=== PATIENT | female | born 1940 | race Caucasian/White ===

== ENCOUNTER 2020-02-04 13:23 | Inpatient (IN) | payer MEDICARE, BC ==
[2020-02-04] VITALS (7 sets, daily range): BP systolic 110–138; BP diastolic 35–80
[~2020-02-04] VITALS: Ht 152.4 cm; Wt 76.9 kg
[2020-02-04 14:28] LABS: Basophils # (auto) 0.1 10 ^3/uL (0-0.2); Monocytes # (auto) 0.5 10 ^3/uL (0-1.3)
[2020-02-04 14:30] LABS: Basophils % (auto) 0.9 % (0.0-2.0); Eosinophils # (auto) 0.1 10 ^3/uL (0-0.8); Eosinophils % (auto) 0.7 % (0.0-7.0); Hematocrit 13.7 % (36.0-46.0); Lymphocytes % (auto) 13.7 % (10.0-50.0); Mean Corpuscular Hgb Conc. 30.3 g/dL (32.0-36.0); Mean Corpuscular Volume 72.5 fL (80.0-100.0); Monocytes % (auto) 6.1 % (0.0-12.0); Neutrophils % (auto) 78.6 % (37.0-80.0); Nucleated Red Blood Cells % 0.2 %; Platelet Count (auto) 290 10^3/uL (140-450); White Blood Cell 7.6 10^3/uL (4.4-10.8)
[2020-02-04 14:33] LABS: Hemoglobin 4.2 g/dL (12.2-16.2); Red Cell Distribution Width 20.4 % (11.8-14.3)
[2020-02-04 14:46] LABS: Albumin 2.7 g/dL (3.4-5.0); Calcium 7.9 mg/dL (8.5-10.1); Potassium 4.2 mmol/L (3.5-5.1)
[2020-02-04 14:49] LABS: BUN/Creatinine Ratio 28.3; Bilirubin, Total 0.4 mg/dL (0.2-1.0)
[2020-02-04] MEDS ORDERED: SODIUM CHLORIDE 0.9% 1,000 ML IVB ONE (14:50)
[2020-02-04] MEDS ORDERED: PANTOPRAZOLE 40 MG/10 ML VIAL INJ IV ONE (15:00)
[2020-02-04 15:45] LABS: INR 1.08 (0.9-1.15); Partial Thromboplastin Time < 20.0 sec (23.64-32.05)
[2020-02-04 15:46] LABS: Urine WBC None Seen /hpf (0 - 5)
[2020-02-04 15:50] LABS: Magnesium 2.8 mg/dL (1.6-2.6)
[2020-02-04 16:23] LABS: Urine Bacteria NONE SEEN /hpf (None Seen); Urine Blood Negative /uL (Negative); Urine Specific Gravity 1.005 (1.001-1.035)
[2020-02-04] MEDS ORDERED: FUROSEMIDE 20 MG/2 ML VIAL IV ONE ×2 (17:00→19:00)
[2020-02-04] MEDS ORDERED: ALUM & MAG HYDROX-SIMETH LIQ(MAALOX) 30 ML PO PRN (17:00)
[2020-02-04] MEDS ORDERED: LACTATED RINGER'S 1,000 ML IV ONE (17:00)
[2020-02-04] MEDS ORDERED: LORazepam 0.5 MG TAB PO PRN (17:00)
[2020-02-04] MEDS ORDERED: NITROGLYCERIN 0.4 MG SL TAB SL PRN (17:00)
[2020-02-04] MEDS ORDERED: MORPHINE SULF INJ 2 MG/ML SYRINGE 1ML IV PRN ×2 (17:00)
[2020-02-04] MEDS ORDERED: ONDANSETRON HCL 4 MG/2 ML VIAL IV PRN (17:00)
[2020-02-04] MEDS ORDERED: ACETAMINOPHEN 325 MG TAB PO PRN (17:00)
[2020-02-04] MEDS ORDERED: HYDROcodone-ACET 5/325MG TAB PO PRN (17:00)
[2020-02-04] MEDS ORDERED: DOCUSATE SOD 100 MG CAP PO PRN (17:00)
[2020-02-04 17:12] LABS: Cholesterol 92 mg/dL (< 200)
[2020-02-04 17:15] LABS: HDL Cholesterol 34 mg/dL (40-59); LDL Cholesterol 56 mg/dL (< 100); Triglycerides 68 mg/dL (< 150)
[2020-02-04] MEDS: SODIUM CHLORIDE 0.9% 1,000 ML IV SCH (17:18)
[2020-02-04] MEDS: PANTOPRAZOLE 40 MG/10 ML VIAL INJ IV SCH (22:00)
[2020-02-05] VITALS (9 sets, daily range): BP systolic 94–160; BP diastolic 47–66
[2020-02-05] MEDS ORDERED: FUROSEMIDE 20 MG/2 ML VIAL IV SCH (06:00)
[2020-02-05 06:47] LABS: Basophils # (auto) 0.1 10 ^3/uL (0-0.2); Eosinophils # (auto) 0.2 10 ^3/uL (0-0.8)
[2020-02-05 06:51] LABS: Basophils % (auto) 1.1 % (0.0-2.0); Eosinophils % (auto) 2.5 % (0.0-7.0); Hematocrit 25.1 % (36.0-46.0); Lymphocytes # (auto) 1.2 10 ^3/uL (0.4-5.4); Lymphocytes % (auto) 15.4 % (10.0-50.0); Mean Corpuscular Hgb Conc. 32.1 g/dL (32.0-36.0); Mean Corpuscular Volume 81.1 fL (80.0-100.0); Monocytes # (auto) 0.6 10 ^3/uL (0-1.3); Monocytes % (auto) 7.5 % (0.0-12.0); Neutrophils # (auto) 5.9 10 ^3/uL (1.6-8.6); Neutrophils % (auto) 73.5 % (37.0-80.0); Nucleated Red Blood Cells % 0.1 %; Platelet Count (auto) 260 10^3/uL (140-450); Red Blood Cells 3.09 10^6/uL (4.0-5.20)
[2020-02-05] MEDS ORDERED: LEVOTHYROXINE SODIUM 100 MCG TAB PO SCH (07:00)
[2020-02-05 07:05] LABS: INR 1.08 (0.9-1.15); Partial Thromboplastin Time 20.7 sec (23.64-32.05)
[2020-02-05 07:14] LABS: Potassium 4.4 mmol/L (3.5-5.1)
[2020-02-05 07:19] LABS: Red Cell Distribution Width 22.6 % (11.8-14.3)
[2020-02-05 07:35] LABS: Albumin 2.7 g/dL (3.4-5.0); Bilirubin, Total 0.8 mg/dL (0.2-1.0); Calcium 7.9 mg/dL (8.5-10.1); Magnesium 2.7 mg/dL (1.6-2.6)
[2020-02-05] MEDS: SODIUM CHLORIDE 0.9% 1,000 ML IV SCH (09:27)
[2020-02-05] MEDS: PANTOPRAZOLE 40 MG/10 ML VIAL INJ IV SCH ×2 (09:37→22:40)
[2020-02-05] MEDS ORDERED: MORPHINE SULF INJ 2 MG/ML SYRINGE 1ML IV PRN (12:00)
[2020-02-05] MEDS ORDERED: LORazepam 0.5 MG TAB PO PRN (12:00)
[2020-02-05 12:13] LABS: Barbiturate Scree,Urine NEGATIVE (NEGATIVE); Benzodiazephine Screen, Urine NEGATIVE (NEGATIVE); Cocaine Screen, Urine NEGATIVE (NEGATIVE); Opiate Scree,Urine NEGATIVE (NEGATIVE)
[2020-02-05 12:15] LABS: Alcohol, Urine < 3.0 mg/dL (0-10)
[2020-02-05] MEDS ORDERED: CARVEDILOL 3.125 MG TAB PO ONE (12:15)
[2020-02-05] MEDS ORDERED: FUROSEMIDE 20 MG/2 ML VIAL IV ONE (12:15)
[2020-02-05 12:16] LABS: Amphetamine Screen, Urine NEGATIVE (NEGATIVE); Cannabinoid Screen, Urine NEGATIVE (NEGATIVE); Phencyclidine Screen, Urine NEGATIVE (NEGATIVE)
[2020-02-05 14:12] LABS: Hematocrit 25.3 % (36.0-46.0); Hemoglobin 8.1 g/dL (12.2-16.2)
[2020-02-05 19:59] LABS: Hematocrit 25.6 % (36.0-46.0); Hemoglobin 8.1 g/dL (12.2-16.2)
[2020-02-05] MEDS ORDERED: CARVEDILOL 3.125 MG TAB PO SCH (22:00)
[2020-02-05] MEDS: METOPROLOL TARTRATE 25 MG TAB PO SCH (22:40)
[2020-02-06 01:31] LABS: Hemoglobin 8.3 g/dL (12.2-16.2)
[2020-02-06] MEDS: SODIUM CHLORIDE 0.9% 1,000 ML IV SCH (03:22)
[2020-02-06 05:00] VITALS: BP 133/71
[2020-02-06 07:22] LABS: Basophils # (auto) 0.1 10 ^3/uL (0-0.2); Basophils % (auto) 1.2 % (0.0-2.0); Eosinophils # (auto) 0.4 10 ^3/uL (0-0.8); Lymphocytes # (auto) 1.2 10 ^3/uL (0.4-5.4); Mean Corpuscular Hemoglobin 25.5 pg (28.0-32.0); Monocytes # (auto) 0.7 10 ^3/uL (0-1.3); Nucleated Red Blood Cells % 0.3 %
[2020-02-06 07:26] LABS: Eosinophils % (auto) 4.9 % (0.0-7.0); Hematocrit 24.4 % (36.0-46.0); Hemoglobin 7.8 g/dL (12.2-16.2); Mean Corpuscular Volume 79.8 fL (80.0-100.0); Monocytes % (auto) 9.1 % (0.0-12.0); Neutrophils # (auto) 5.6 10 ^3/uL (1.6-8.6); Neutrophils % (auto) 69.8 % (37.0-80.0); Platelet Count (auto) 274 10^3/uL (140-450); Red Blood Cells 3.06 10^6/uL (4.0-5.20)
[2020-02-06 07:32] LABS: Red Cell Distribution Width 22.7 % (11.8-14.3)
[2020-02-06 07:47] LABS: Calcium 8.3 mg/dL (8.5-10.1); Magnesium 2.5 mg/dL (1.6-2.6); Potassium 3.9 mmol/L (3.5-5.1)
[2020-02-06 09:00] VITALS: BP 127/64
[2020-02-06] MEDS: METOPROLOL TARTRATE 25 MG TAB PO SCH ×2 (09:31→22:50)
[2020-02-06] MEDS: PANTOPRAZOLE 40 MG/10 ML VIAL INJ IV SCH ×2 (09:31→22:47)
[2020-02-06] MEDS ORDERED: FUROSEMIDE 20 MG/2 ML VIAL IV SCH (10:00)
[2020-02-06 12:00] LABS: Hemoglobin 8.1 g/dL (12.2-16.2)
[2020-02-06 12:03] LABS: Hematocrit 26.2 % (36.0-46.0)
[2020-02-06 12:40] VITALS: BP 104/60
[2020-02-06] MEDS ORDERED: SODIUM CHLORIDE 0.9% 1,000 ML IV SCH (13:30)
[2020-02-06] MEDS ORDERED: AML5T PO (13:50)
[2020-02-06] MEDS ORDERED: FURO1TAB31 PO (13:50)
[2020-02-06] MEDS ORDERED: ASPI-404 PO (13:50)
[2020-02-06] MEDS ORDERED: LISI10TA6 PO (13:50)
[2020-02-06] MEDS ORDERED: LEVO200T7 PO (13:52)
[2020-02-06] MEDS ORDERED: ATOR10TA PO (13:52)
[2020-02-06] MEDS ORDERED: POTA10TA51 PO (13:52)
[2020-02-06] MEDS: VERAPAMIL HCL 40 MG TAB PO SCH ×2 (14:00→22:48)
[2020-02-06 16:53] VITALS: BP 103/60
[2020-02-06 18:35] LABS: Hematocrit 27.7 % (36.0-46.0); Hemoglobin 8.6 g/dL (12.2-16.2)
[2020-02-06 20:00] VITALS: BP 119/40
[2020-02-06 22:00] VITALS: BP 119/40
[2020-02-06] MEDS: ATORVASTATIN 20 MG TAB PO SCH (22:48)
[2020-02-07 01:34] LABS: Hematocrit 24.1 % (36.0-46.0); Hemoglobin 7.7 g/dL (12.2-16.2)
[2020-02-07 05:00] VITALS: BP 111/63
[2020-02-07] MEDS: VERAPAMIL HCL 40 MG TAB PO SCH (06:10)
[2020-02-07 07:17] LABS: Hemoglobin 7.5 g/dL (12.2-16.2)
[2020-02-07 07:49] LABS: Calcium 7.9 mg/dL (8.5-10.1); Potassium 3.8 mmol/L (3.5-5.1)
[2020-02-07 07:51] LABS: BUN/Creatinine Ratio 19.6
[2020-02-07] MEDS: PANTOPRAZOLE 40 MG/10 ML VIAL INJ IV SCH (09:51)
[2020-02-07] MEDS: METOPROLOL TARTRATE 25 MG TAB PO SCH ×2 (09:55→21:40)
[2020-02-07] MEDS ORDERED: VERAPAMIL HCL 120 mg ER tab PO ONE (11:15)
[2020-02-07 13:00] VITALS: BP 96/54
[2020-02-07 16:44] VITALS: BP 128/58
[2020-02-07] MEDS: ATORVASTATIN 20 MG TAB PO SCH (21:40)
[2020-02-07] MEDS: PANTOPRAZOLE 40 MG TAB PO SCH (21:40)
[2020-02-07 22:00] VITALS: BP 109/67
[2020-02-08 05:24] VITALS: BP 107/60
[2020-02-08 07:33] LABS: Hematocrit 23.7 % (36.0-46.0); Hemoglobin 7.5 g/dL (12.2-16.2)
[2020-02-08 08:37] VITALS: BP 133/68
[2020-02-08] MEDS: PANTOPRAZOLE 40 MG TAB PO SCH (09:56)
[2020-02-08] MEDS: METOPROLOL TARTRATE 25 MG TAB PO SCH (09:56)
[2020-02-08] MEDS ORDERED: VERAPAMIL HCL 120 mg ER tab PO SCH (10:00)
[2020-02-08] MEDS ORDERED: PANT40TA2 PO (12:27)
[2020-02-08] MEDS ORDERED: VERA120T2 PO (12:27)
[2020-02-08] MEDS ORDERED: SUCR1TAB38 PO (12:27)
[2020-02-08] MEDS ORDERED: MET25T PO (12:27)
[2020-02-08 13:00] VITALS: BP 104/49
[2020-02-08 16:28] VITALS: BP 90/47
== END 2020-02-08 17:25 | disposition home health service (06) | DRG 377 ==
LOC: ER 13:23 → EDBD 13:23 → TELE 13:24 → TELE-WESTW 23:07
PROVIDERS: ADMIT Hospitalist; ATTEND Internal Medicine
PROC: 30233N1 Transfusion of Nonautologous Red Blood Cells into Peripheral Vein, Percutaneous Approach (ICD-10-PCS; principal; 2020-02-04)
DX: K57.31 Diverticulosis of large intestine without perforation or abscess with bleeding (principal); N17.0 Acute kidney failure with tubular necrosis; E43 Unspecified severe protein-calorie malnutrition; I21.A1 Myocardial infarction type 2; I50.33 Acute on chronic diastolic (congestive) heart failure; I13.0 Hypertensive heart and chronic kidney disease with heart failure and stage 1 through stage 4 chronic kidney disease, or unspecified chronic kidney disease; I42.1 Obstructive hypertrophic cardiomyopathy; K92.1 Melena; N18.3 Chronic kidney disease, stage 3 (moderate); G89.29 Other chronic pain; K80.20 Calculus of gallbladder without cholecystitis without obstruction; K42.9 Umbilical hernia without obstruction or gangrene; E03.9 Hypothyroidism, unspecified; E78.5 Hyperlipidemia, unspecified; D25.9 Leiomyoma of uterus, unspecified; D64.9 Anemia, unspecified; I65.29 Occlusion and stenosis of unspecified carotid artery; M19.90 Unspecified osteoarthritis, unspecified site; E66.9 Obesity, unspecified; K21.9 Gastro-esophageal reflux disease without esophagitis; M54.5 Low back pain; Z03.818 Encounter for observation for suspected exposure to other biological agents ruled out
CPT/HCPCS: 36415; 71045; 74176; 76856; 78278; 80048; 80053; 80061; 80307; 81001; 83036; 83735; 83880; 84100; 84443; 84484; 85014; 85018; 85025; 85610; 85730; 86850; 86900; 86901; 86920; 87040; 87086; 93005; 93306; 96361; 96374; A9560; C9113; G0378

== ENCOUNTER 2022-05-05 08:05 | Inpatient (IN) | payer MEDICARE, BC ==
[~2022-05-05] VITALS: Ht 153 cm; Wt 78.7 kg
[~2022-05-05 08:05] MED LIST: ATOR10TA PO; MET25T PO; PANT40TA2 PO; SUCR1TAB22 PO; VERA120T2 PO
[2022-05-05 08:58] LABS: Basophils # (auto) 0.1 10 ^3/uL (0-0.2); Basophils % (auto) 1.2 % (0.0-2.0); Eosinophils # (auto) 0.1 10 ^3/uL (0-0.8); Eosinophils % (auto) 1.9 % (0.0-7.0); Hematocrit 40.3 % (36.0-46.0); Hemoglobin 13.2 g/dL (12.2-16.2); Lymphocytes # (auto) 0.9 10 ^3/uL (0.4-5.4); Lymphocytes % (auto) 13.6 % (10.0-50.0); Mean Corpuscular Hemoglobin 30.3 pg (28.0-32.0); Mean Corpuscular Hgb Conc. 32.9 g/dL (32.0-36.0); Mean Corpuscular Volume 92.2 fL (80.0-100.0); Monocytes # (auto) 0.5 10 ^3/uL (0-1.3); Monocytes % (auto) 7.3 % (0.0-12.0); Neutrophils # (auto) 5.2 10 ^3/uL (1.6-8.6); Nucleated Red Blood Cells % 0.1 %; Red Blood Cells 4.37 10^6/uL (4.0-5.20); Red Cell Distribution Width 16.4 % (11.8-14.3); White Blood Cell 6.8 10^3/uL (4.4-10.8)
[2022-05-05 09:13] LABS: INR 1.11 (0.9-1.15)
[2022-05-05 09:18] LABS: Albumin 2.7 g/dL (3.4-5.0); BUN/Creatinine Ratio 19.5; Calcium 8.4 mg/dL (8.5-10.1); Potassium 3.6 mmol/L (3.5-5.1)
[2022-05-05 09:21] LABS: Bilirubin, Total 0.9 mg/dL (0.2-1.0)
[2022-05-05] MEDS ORDERED: cefTRIAXone 1GM/50ML D5W 50 ML IV ONE (13:30)
[2022-05-05] MEDS ORDERED: MORPHINE SULFATE INJ 2 MG/ml SYRG IV PRN (13:30)
[2022-05-05] MEDS ORDERED: NITROGLYCERIN 0.4 MG SL TAB SL PRN (13:30)
[2022-05-05] MEDS ORDERED: PANTOPRAZOLE 40 MG/10 ML VIAL INJ IV ONE (13:30)
[2022-05-05] MEDS ORDERED: AZITHROMYCIN 500MG/ 250ML 250 ML IV ONE (14:30)
[2022-05-05 14:39] LABS: Cholesterol 116 mg/dL (< 200)
[2022-05-05 14:41] LABS: HDL Cholesterol 62 mg/dL (40-59); LDL Cholesterol 54 mg/dL (< 100); Triglycerides 60 mg/dL (< 150)
[2022-05-05] MEDS ORDERED: AMIODARONE 450mg/250ml AE 250 ML IV SCH (19:15)
[2022-05-05 19:27] LABS: Urine Bacteria NONE SEEN /hpf (None Seen); Urine Blood Negative /uL (Negative); Urine Specific Gravity 1.032 (1.001-1.035); Urine WBC 3 /hpf (0 - 5)
[2022-05-05] MEDS: METOPROLOL TARTRATE 25 MG TAB PO SCH (23:11)
[2022-05-06 05:00] VITALS: BP 149/68
[2022-05-06] MEDS: METOPROLOL TARTRATE 25 MG TAB PO SCH ×3 (06:32→21:51)
[2022-05-06 06:58] LABS: Basophils # (auto) 0.1 10 ^3/uL (0-0.2); Basophils % (auto) 0.9 % (0.0-2.0); Eosinophils # (auto) 0.2 10 ^3/uL (0-0.8); Eosinophils % (auto) 2.8 % (0.0-7.0); Hematocrit 38.3 % (36.0-46.0); Hemoglobin 12.4 g/dL (12.2-16.2); Lymphocytes # (auto) 0.8 10 ^3/uL (0.4-5.4); Lymphocytes % (auto) 11.8 % (10.0-50.0); Mean Corpuscular Hemoglobin 30.3 pg (28.0-32.0); Mean Corpuscular Hgb Conc. 32.4 g/dL (32.0-36.0); Mean Corpuscular Volume 93.4 fL (80.0-100.0); Monocytes # (auto) 0.4 10 ^3/uL (0-1.3); Monocytes % (auto) 6.8 % (0.0-12.0); Neutrophils % (auto) 77.7 % (37.0-80.0); Nucleated Red Blood Cells % 0.1 %; Red Cell Distribution Width 16.5 % (11.8-14.3); White Blood Cell 6.4 10^3/uL (4.4-10.8)
[2022-05-06 07:04] LABS: Albumin 2.6 g/dL (3.4-5.0); Calcium 8.2 mg/dL (8.5-10.1); Potassium 4.1 mmol/L (3.5-5.1)
[2022-05-06 07:06] LABS: Bilirubin, Total 0.9 mg/dL (0.2-1.0); Total Protein 6.2 g/dL (6.4-8.2)
[2022-05-06] MEDS ORDERED: AMIODARONE 450mg/250ml AE 250 ML IV SCH (07:15)
[2022-05-06 08:17] VITALS: BP 149/63
[2022-05-06] MEDS ORDERED: AMLO-483 PO (08:57)
[2022-05-06] MEDS ORDERED: LEVO75TA6 PO (08:57)
[2022-05-06] MEDS ORDERED: SILD20TA12 PO (08:57)
[2022-05-06] MEDS ORDERED: ATOR40TA52 PO (08:57)
[2022-05-06] MEDS ORDERED: FUR20T PO (08:57)
[2022-05-06 09:00] VITALS: BP 136/48
[2022-05-06] MEDS ORDERED: cefTRIAXone 1GM/50ML D5W 50 ML IV SCH (09:00)
[2022-05-06] MEDS ORDERED: AZITHROMYCIN 500MG/ 250ML 250 ML IV SCH (10:00)
[2022-05-06] MEDS ORDERED: PANTOPRAZOLE 40 MG/10 ML VIAL INJ IV SCH (10:00)
[2022-05-06] MEDS ORDERED: amLODIPine BESYLATE 5 MG TAB PO ONE (11:00)
[2022-05-06] MEDS ORDERED: POTASSIUM CHL 20 Meq TABLET PO ONE (11:00)
[2022-05-06] MEDS ORDERED: FUROSEMIDE 40 MG/4 ML VIAL IV ONE (11:00)
[2022-05-06] MEDS ORDERED: LEVOTHYROXINE SODIUM 25 MCG TAB PO ONE (11:00)
[2022-05-06] MEDS: ENOXAPARIN SOD 40 MG/0.4 ML SYRINGE SC SCH (11:09)
[2022-05-06] MEDS: PANTOPRAZOLE 40 MG TAB PO SCH (11:09)
[2022-05-06] MEDS: DOXYCYCLINE 100 MG TAB/CAP PO SCH ×2 (11:09→21:47)
[2022-05-06 13:00] VITALS: BP 147/47
[2022-05-06] MEDS: AMIODARONE 450mg/250ml AE 250 ML IV SCH (14:06)
[2022-05-06 16:57] VITALS: BP 103/61
[2022-05-06] MEDS: ATORVASTATIN 20 MG TAB PO SCH (21:47)
[2022-05-06 22:00] VITALS: BP 133/53
[2022-05-07] MEDS: AMIODARONE 450mg/250ml AE 250 ML IV SCH ×3 (01:24→22:01)
[2022-05-07] MEDS ORDERED: AMIODARONE 450mg/250ml AE 250 ML IV SCH (03:30)
[2022-05-07 05:00] VITALS: BP 115/61
[2022-05-07] MEDS: METOPROLOL TARTRATE 25 MG TAB PO SCH (06:18)
[2022-05-07] MEDS: LEVOTHYROXINE SODIUM 25 MCG TAB PO SCH (06:19)
[2022-05-07 06:44] LABS: BUN/Creatinine Ratio 22.9; Calcium 8.3 mg/dL (8.5-10.1); Potassium 4.7 mmol/L (3.5-5.1)
[2022-05-07 09:00] VITALS: BP 148/63
[2022-05-07] MEDS: PANTOPRAZOLE 40 MG TAB PO SCH ×2 (09:26→09:27)
[2022-05-07] MEDS: ENOXAPARIN SOD 40 MG/0.4 ML SYRINGE SC SCH (09:26)
[2022-05-07] MEDS: POTASSIUM CHL 20 Meq TABLET PO SCH (09:26)
[2022-05-07] MEDS: amLODIPine BESYLATE 5 MG TAB PO SCH (09:27)
[2022-05-07] MEDS: DOXYCYCLINE 100 MG TAB/CAP PO SCH ×2 (09:27→21:53)
[2022-05-07] MEDS ORDERED: FUROSEMIDE 40 MG/4 ML VIAL IV SCH (10:00)
[2022-05-07 13:00] VITALS: BP 127/85
[2022-05-07 17:09] VITALS: BP 109/70
[2022-05-07] MEDS: ATORVASTATIN 20 MG TAB PO SCH (21:53)
[2022-05-07 22:00] VITALS: BP 118/66
[2022-05-08 05:00] VITALS: BP 128/56
[2022-05-08] MEDS: LEVOTHYROXINE SODIUM 25 MCG TAB PO SCH (06:17)
[2022-05-08 06:34] LABS: BUN/Creatinine Ratio 24.7; Calcium 8.9 mg/dL (8.5-10.1); Potassium 4.2 mmol/L (3.5-5.1)
[2022-05-08 08:18] VITALS: BP 110/85
[2022-05-08 09:00] VITALS: BP 110/85
[2022-05-08] MEDS ORDERED: AMIODARONE HCL 200 MG TAB PO SCH (10:00)
[2022-05-08] MEDS: amLODIPine BESYLATE 5 MG TAB PO SCH (10:00)
[2022-05-08] MEDS ORDERED: FUROSEMIDE 40 MG TAB PO SCH (10:00)
[2022-05-08] MEDS: ENOXAPARIN SOD 40 MG/0.4 ML SYRINGE SC SCH (10:24)
[2022-05-08] MEDS: PANTOPRAZOLE 40 MG TAB PO SCH (10:26)
[2022-05-08] MEDS: DOXYCYCLINE 100 MG TAB/CAP PO SCH (10:26)
[2022-05-08] MEDS: POTASSIUM CHL 20 Meq TABLET PO SCH (10:27)
[2022-05-08] MEDS ORDERED: AMIO200T33 PO (11:00)
[2022-05-08 11:47] VITALS: BP 140/60
[2022-05-08 13:15] VITALS: BP 140/60
== END 2022-05-08 13:00 | disposition home or self-care (01) | DRG 280 ==
LOC: ER 08:05 → EDBD 08:05 → TELE 13:25 → TELE-CENTR 05-06 03:21
PROVIDERS: ADMIT Registered Nurse; ATTEND Internal Medicine
DX: I13.0 Hypertensive heart and chronic kidney disease with heart failure and stage 1 through stage 4 chronic kidney disease, or unspecified chronic kidney disease (principal); I21.A1 Myocardial infarction type 2; I50.33 Acute on chronic diastolic (congestive) heart failure; J96.00 Acute respiratory failure, unspecified whether with hypoxia or hypercapnia; I42.1 Obstructive hypertrophic cardiomyopathy; Z66 Do not resuscitate; E78.5 Hyperlipidemia, unspecified; E03.9 Hypothyroidism, unspecified; E66.9 Obesity, unspecified; Z20.822 Contact with and (suspected) exposure to COVID-19; I25.10 Atherosclerotic heart disease of native coronary artery without angina pectoris; I48.91 Unspecified atrial fibrillation; J44.9 Chronic obstructive pulmonary disease, unspecified; N18.9 Chronic kidney disease, unspecified; I25.2 Old myocardial infarction; Z79.899 Other long term (current) drug therapy; Z68.33 Body mass index [BMI] 33.0-33.9, adult; Z71.6 Tobacco abuse counseling
CPT/HCPCS: 36415; 71045; 71275; 80048; 80053; 80061; 81001; 83036; 83880; 84443; 84484; 85025; 85379; 85610; 85730; 87040; 93005; 93306; 96365; 96367; 96375; 97110; 97116; 97530; C9113; G0378; J0696

== ENCOUNTER 2024-03-31 23:00 | Emergency (ER) | payer MEDICARE, BC ==
[~2024-03-31] VITALS: Ht 152.4 cm; Wt 55.0 kg
[~2024-03-31 23:00] MED LIST changes: +AMIO200T33 PO; +AMLO1TAB21 PO; +ATOR40TA52 PO; +FURO20TA4 PO; +LEVO75TA6 PO; +SILD20TA12 PO; -SUCR1TAB22 PO; +SUCR1TAB31 PO
[2024-04-01 00:24] VITALS: RESP 14; O2SAT 91
[2024-04-01 00:41] LABS: Basophils # (auto) 0 10 ^3/uL (0-0.2); Basophils % (auto) 0.4 % (0.0-2.0); Eosinophils # (auto) 0 10 ^3/uL (0-0.8); Eosinophils % (auto) 0.1 % (0.0-7.0); Hematocrit 40.9 % (36.0-46.0); Hemoglobin 14.2 g/dL (12.2-16.2); Lymphocytes # (auto) 0.8 10 ^3/uL (0.4-5.4); Lymphocytes % (auto) 7.6 % (10.0-50.0); Mean Corpuscular Hemoglobin 33.5 pg (28.0-32.0); Mean Corpuscular Hgb Conc. 34.6 g/dL (32.0-36.0); Mean Corpuscular Volume 96.7 fL (80.0-100.0); Monocytes # (auto) 0.5 10 ^3/uL (0-1.3); Monocytes % (auto) 5.2 % (0.0-12.0); Neutrophils # (auto) 8.7 10 ^3/uL (1.6-8.6); Neutrophils % (auto) 86.7 % (37.0-80.0); Platelet Count (auto) 209 10^3/uL (140-450); Red Blood Cells 4.23 10^6/uL (4.0-5.20); Red Cell Distribution Width 14.3 % (11.8-14.3)
[2024-04-01 00:51] LABS: Chloride 107 mmol/L (98-107); Potassium 3.8 mmol/L (3.5-5.1); Sodium 137 mmol/L (136-145)
[2024-04-01 00:52] LABS: Anion Gap 9 (5-15); Carbon Dioxide 21 mmol/L (20-30)
[2024-04-01 00:57] LABS: BUN/Creatinine Ratio 16.7 (10.0-20.0); Blood Urea Nitrogen 17 mg/dL (9-23); Glucose 141 mg/dL (74-106)
[2024-04-01] MEDS: MORPHINE SULFATE INJ 2 MG/ml SYRG IV ONE (01:00)
[2024-04-01] MEDS: ONDANSETRON HCL 4 MG/2 ML VIAL IV ONE (01:01)
[2024-04-01] MEDS: IOHEXOL 350 MG/ML 100ML IJ ONE (02:04)
[2024-04-01] MEDS: FUROSEMIDE 20 MG/2 ML VIAL IV ONE (05:13)
[2024-04-01] MEDS: ASPirin 325 MG TAB PO ONE (05:14)
[2024-04-01] MEDS: NITROGLYCERIN 2% OINT 1GM PKG TD ONE (05:14)
[2024-04-01] MEDS ORDERED: HEPARIN SODIUM (PORCINE) 5000 UNITS/ML 1ML VIAL IV ONE (05:45)
[2024-04-01] MEDS ORDERED: HEPARIN DRIP/D5W 100UNITS/ML 250 ML IV SCH (05:45)
[2024-04-01 07:27] VITALS: RESP 22; O2SAT 96
[2024-04-01 07:45] LABS: INR 1.13 (0.9-1.15); Partial Thromboplastin Time 26.7 SEC (24.5-34.5); Prothrombin Time 11.9 sec (9.3-11.8)
[2024-04-01 07:50] VITALS: BP 151/76; PULSE 84; RESP 22; TEMP 98.6; O2SAT 97
== END 2024-04-01 07:43 | disposition home or self-care (01) ==
LOC: EDBD 23:00 → ER 23:00
DX: I21.4 Non-ST elevation (NSTEMI) myocardial infarction (principal); I50.9 Heart failure, unspecified; I11.0 Hypertensive heart disease with heart failure; I77.1 Stricture of artery; I25.2 Old myocardial infarction; E78.5 Hyperlipidemia, unspecified; K21.9 Gastro-esophageal reflux disease without esophagitis; Z98.890 Other specified postprocedural states; Z79.899 Other long term (current) drug therapy
CPT/HCPCS: 36415; 71045; 72131; 73700; 80048; 83880; 84484; 85025; 85379; 85610; 85730; 93005; 96374; 96375; 99291; J1940; J2270; J2405; Q9967

== ENCOUNTER 2025-03-02 09:23 | Inpatient (IN) | payer MEDICARE, BC ==
[~2025-03-02] VITALS: Ht 152.4 cm; Wt 77.8 kg
--- NOTE | 2025-03-02 09:51 | ED.PDOC ---
History of Present Illness HPI Comments This is a 84-year-old female with past medical history of CAD, hypertension, hypothyroidism, CHF, AFib, DVT, hyperlipidemia presented to the ED with a chief complaint of per rectal bleeding since morning. The patient states that she started taking Eliquis 4 days ago and since morning she had 3 bowel movement that mostly contained fresh blood. She denies abdominal pain, chills, fever, chest pain, dizziness, blurred vision, shortness of breath, dysuria, hematuria. She was diagnosed with DVT of right leg in last March, but she was not continuing Eliquis. She also mentioned was on hospice from March, to Nov, 2024 for CHF. Time Seen by MD: 09:33 Allergies: Coded Allergies: No Known Drug Allergy (Verified Allergy, Unknown, 02/04/20) Home Meds Active Scripts Amiodarone Hcl (Amiodarone Hcl) 200 Mg Tab, 200 MG PO BID for 30 Days, #60 TAB 2 Refills Prov:CRISTINE PACHECO MD 05/08/22 Metoprolol Tartrate (Lopressor) 25 Mg Tb, 12.5 MG PO BID, #60 TAB Prov:ABDULLAHI LUX MD 02/08/20 Verapamil Hcl (Calan Sr) 120 Mg Tab, 120 MG PO DAILY, #30 TAB Prov:ABDULLAHI LUX MD 02/08/20 Sucralfate (CARAFATE) 1 Gm Tab, 1 GM PO ACHS, #120 TAB Prov:ABDULLAHI LUX MD 02/08/20 Pantoprazole Sodium Sesquihydr (Protonix) 40 Mg Tab, 40 MG PO BID, #60 TAB Prov:ABDULLAHI LUX MD 02/08/20 Reported Medications Furosemide (Furosemide) 20 Mg Tab, 1 TAB PO DAILY 05/06/22 Atorvastatin Calcium (ATORVASTATIN CALCIUM) 40 Mg Tab, 1 TAB PO HS 05/06/22 Sildenafil Citrate (SILDENAFIL CITRATE) 20 Mg Tab, 1 TAB PO BID 05/06/22 Amlodipine Besylate (Amlodipine Besylate) 2.5 Mg Tab, 1 TAB PO BID 05/06/22 Levothyroxine Sodium (Levothyroxine Sodium) 75 Mcg Tab, 1 TAB PO DAILY 05/06/22 Atorvastatin Calcium (Lipitor) 10 Mg Tab, 1 TAB PO DAILY, #30 TAB 5 Refills 02/06/20 Information Source: Patient Mode of Arrival: EMS Severity: Moderate Timing: Hours Duration: Since onset Prehospital treatment: None Past Medical History PAST MEDICAL HISTORY: AFIB, CAD, CHF, GERD, High Lipids, HTN, [place], Thyroid Past Medical History (Other): DVT Surgical History: Tonsillectomy SET UP PERSON History: Denies all SET UP PERSON Hx Family History Family History: Reviewed,noncontributory to illness Social History Smoker: Non-Smoker Alcohol: Denies ETOH Use Drugs: Denies Drug Use Lives In: Home Constitutional: denies: chills, diaphoresis, fatigue, fever, malaise, sweats, weakness, others EENTM: denies: blurred vision, double vision, ear bleeding, ear discharge, ear drainage, ear pain, ear ringing, eye pain, eye redness, hearing loss, mouth pain, mouth swelling, nasal discharge, nose bleeding, nose congestion, nose pain, photophobia, tearing, throat pain, throat swelling, voice changes, others Respiratory: denies: cough, hemoptysis, orthopnea, SOB at rest, shortness of breath, SOB with excertion, stridor, wheezing, others Cardiovascular: denies: chest pain, dizzy spells, diaphoresis, Dyspnea on exertion, edema, irregular heart beat, left arm pain, lightheadedness, palpitations, PND, syncope, others Gastrointestinal: reports: rectal bleeding; denies: abdomen distended, abdominal pain, blood streaked bowels, constipated, diarrhea, dysphagia, difficulty swallowing, hematemesis, melena, nausea, poor appetite, poor fluid intake, rectal pain, vomiting, others Genitourinary: denies: abnormal vagina bleeding, burning, dyspareunia, dysuria, flank pain, frequency, hematuria, incontinence, pain, , vagina discharge, urgency, others Neurological: denies: dizziness, fainting, headache, left sided numbness, left sided weakness, numbness, paresthesia, pre-existing deficit, right sided numbness, right sided weakness, seizure, speech problems, tingling, tremors, weakness, others Musculoskeletal: reports: others (Swelling and redness of the left leg) Integumetry: denies: bruises, change in color, change in hair/nails, dryness, laceration, lesions, lumps, rash, wounds, others Allergic/Immunocompromised: denies: Difficulty Healing, Frequent Infections, Hives, Itching, others Hematologic/Lymphatic: denies: anemia, blood clots, easy bleeding, easy bruising, swollen glands, others Endocrine: denies: excessive hunger, excessive sweating, excessive thirst, excessive urination, flushing, intolerance to cold, intolerance to heat, unexplained weight gain, unexplained weight loss, others Psychiatric: denies: anxiety, bipolar disorder, depression, hopeless, panic disorder, schizophrenia, sleepless, suicidal, others Physical Exam General Appearance: Mild Distress HEENT: Normal ENT Inspection, Pharynx Normal, TMs Normal Neck: Full Range of Motion, Non-Tender, Normal, Normal Inspection Respiratory: Chest Non-Tender, Lungs Clear, No Accessory Muscle Use, No Respiratory Distress, Normal Breath Sounds Cardiovascular: No Edema, No JVD, No Murmur, No Gallop, Normal Peripheral Pulses, Regular Rate/Rhythm Breast Exam: Deferred Gastrointestinal: No Organomegaly, Non Tender, No Pulsatile Mass, Normal Bowel Sounds, Soft Genitalia: Deferred Pelvic: Deferred Rectal: Deferred Extremities: Leg edema, Swelling, Tender Neurologic: NOT DONE Cerebellar Function: NOT DONE Reflexes: NOT DONE Skin: NOT DONE Peripheral Pulses: 2+ carotid (R), 2+ carotid (L), 2+ femoral (R), 2+ femoral (L), 2+ dorsalis pedis (R), 2+ dorsalis pedis (L), 2+ Radial (R), 2+ Radial (L), 2+ Brachial (R), 2+ Brachial (L) Lymphatic: NOT DONE Was a procedure done? Was a procedure done?: No Differential Dx Considerations may include: Lower GI bleeding, hemorrhoid, angiodysplasia, bleeding diathesis, DVT of the left leg, cellulitis of the left leg X-Ray, Labs, Meds, VS Vital Signs Date Time Temp Pulse Resp B/P (MAP) Pulse Ox O2 Delivery O2 Flow Rate FiO2 03/02/25 14:45 206/102 03/02/25 14:38 74 15 195/98 (130) 96 03/02/25 13:58 98.7 51 18 238/106 (150) 96 98.7 03/02/25 10:48 97.6 56 22 159/72 (101) 95 97.6 03/02/25 10:48 56 22 95 Room Air 03/02/25 09:30 98.5 51 16 184/62 91 98.5 Lab Test 03/02/25 10:38 03/02/25 10:07 Range/Units Urine Color Light-yellow Yellow Urine Clarity Clear Clear Urine pH 6.5 5.0-9.0 Urine Specific Panther 1.009 1.001-1.035 Urine Protein Negative Negative Urine Ketones Negative Negative Urine Blood 2+ H Negative /uL Urine Nitrite Negative Negative Urine Bilirubin Negative Negative Urine Urobilinogen Normal Negative mg/dL Urine Leukocyte Esterase Trace Negative /uL Urine RBC <1 0 - 4 /hpf Urine Microscopic WBC 4 0-5 /HPF Urine Squamous Epithelial Cells Few <5 /hpf Urine Bacteria Few H None Seen /hpf Urine Glucose Normal Normal mg/dL Stool Occult Blood Positive Negative Stool Occult Blood Sample #3 Negative White Blood Count 5.2 4.4-10.8 10^3/uL Red Blood Count 4.54 4.0-5.20 10^6/uL Hemoglobin 14.5 12.2-16.2 g/dL Hematocrit 43.4 36.0-46.0 % Mean Corpuscular Volume 95.7 80.0-100.0 fL Mean Corpuscular Hemoglobin 32.0 28.0-32.0 pg Mean Corpuscular Hemoglobin Concent 33.4 32.0-36.0 g/dL Red Cell Distribution Width 15.3 H 11.8-14.3 % Platelet Count 181 140-450 10^3/uL Mean Platelet Volume 8.6 6.9-10.8 fL Neutrophils (%) (Auto) 64.7 37.0-80.0 % Lymphocytes (%) (Auto) 21.1 10.0-50.0 % Monocytes (%) (Auto) 9.8 0.0-12.0 % Eosinophils (%) (Auto) 3.2 0.0-7.0 % Basophils (%) (Auto) 1.2 0.0-2.0 % Neutrophils # (Auto) 3.4 1.6-8.6 10 ^3/uL Lymphocytes # (Auto) 1.1 0.4-5.4 10 ^3/uL Monocytes # (Auto) 0.5 0-1.3 10 ^3/uL Eosinophils # (Auto) 0.2 0-0.8 10 ^3/uL Basophils # (Auto) 0.1 0-0.2 10 ^3/uL Nucleated Red Blood Cells 0.1 % Prothrombin Time 12.4 H 9.3-11.8 sec Prothrombin Time INR 1.19 H 0.9-1.15 Activated Partial Thromboplast Time 28.4 24.5-34.5 SEC Sodium Level 141 136-145 mmol/L Potassium Level 3.7 3.5-5.1 mmol/L Chloride Level 108 H 98-107 mmol/L Carbon Dioxide Level 25 20-31 mmol/L Anion Gap 8 5-15 Blood Urea Nitrogen 22 9-23 mg/dL Creatinine 0.88 0.550-1.02 mg/dL Glomerular Filtration Rate Calc 64 >90 mL/min BUN/Creatinine Ratio 25.0 H 10.0-20.0 Serum Glucose 78 74-106 mg/dL Calcium Level 9.1 8.7-10.4 mg/dL Total Bilirubin 0.7 0.2-1.0 mg/dL Aspartate Amino Transferase (AST) 20 13-40 U/L Alanine Aminotransferase (ALT) 17 7-40 U/L Alkaline Phosphatase 81 46-116 U/L B-Type Natriuretic Peptide 685.77 0-100 pg/mL Total Protein 7.1 5.7-8.2 g/dL Albumin 4.1 3.2-4.8 g/dL Current Medications Medications (Trade) Dose Ordered Sig/Steve Route Start Time Stop Time Status Last Admin Sodium Chloride 500 ml @ 500 mls/hr Q1H ONCE IV 03/02/25 10:00 03/02/25 10:59 DC 03/02/25 11:41 Pantoprazole Sodium (Protonix) 40 mg ONCE ONCE IV 03/02/25 10:00 03/02/25 10:07 DC 03/02/25 11:40 Clindamycin Phosphate 50 ml @ 50 mls/hr ONCE ONCE IV 03/02/25 10:15 03/02/25 11:14 DC 03/02/25 11:40 Hydralazine HCl (Apresoline Injection) 10 mg ONCE ONCE IV 03/02/25 14:45 03/02/25 14:48 DC 03/02/25 14:45 X-Ray, Labs, Meds, VS Comment Bilateral lower extremity venous duplex Clinical History: pain; To rule out DVT Comparison: CT ANGIO EXTREMITY BILAT on DOS: 8/31/24, PELVIC on DOS: 02/04/20, CT ABD PELVIS WO CONTRAST on DOS: 02/04/20 Technique: Duplex Doppler evaluation of the deep venous systems of both lower extremities from the common femoral veins to the popliteal veins including color Doppler and spectral/pulsed waveform analysis was performed. Findings: RIGHT SIDE: The common femoral vein demonstrates appropriate compressibility and waveform variability. There is compressibility/patency of the great saphenous vein at the proximal thigh. The femoral vein demonstrates appropriate compressibility and waveform variability. The deep femoral vein demonstrates appropriate compressibility and waveform variability. The popliteal vein demonstrates appropriate compressibility and waveform variability. There is normal compressibility at the tibioperoneal trunk. LEFT SIDE: The common femoral vein demonstrates appropriate compressibility and waveform variability. There is compressibility/patency of the great saphenous vein at the proximal thigh. The femoral vein demonstrates appropriate compressibility and waveform variability. The deep femoral vein demonstrates appropriate compressibility and waveform variability. The popliteal vein demonstrates appropriate compressibility and waveform variability. There is normal compressibility at the tibioperoneal trunk. Impression: No right or left femoropopliteal venous thrombosis. Images Reviewed?: Images reviewed and evaluated by me Time of 1ST Reevaluation: 11:30 Reevaluation 1ST: Unchanged Patient Education/Counseling: Diagnosis, Treatment Family Education/Counseling: No Family Present SEPSIS Sepsis Screen Physician Orders Bilat Lower Dvt (03/02/25 09:48) Saline Lock (03/02/25 11:28) Chest Portable (03/02/25 15:16) Pantoprazole 40mg/50ml Ns Ae (Protonix) (03/02/25 15:30) * Gi Dvh Administrative Hearing Officer (03/02/25 15:16) Vital Signs Date Time Temp Pulse Resp B/P (MAP) Pulse Ox O2 Delivery O2 Flow Rate FiO2 03/02/25 14:45 206/102 03/02/25 14:38 74 15 195/98 (130) 96 03/02/25 13:58 98.7 51 18 238/106 (150) 96 98.7 03/02/25 10:48 97.6 56 22 159/72 (101) 95 97.6 03/02/25 10:48 56 22 95 Room Air 03/02/25 09:30 98.5 51 16 184/62 91 98.5 Laboratory Tests Test 03/02/25 10:07 White Blood Count 5.2 10^3/uL (4.4-10.8) Medications Medications Dose Ordered Sig/Steve Route Start Time Stop Time Status Last Admin Dose Admin Clindamycin Phosphate 50 ml @ 50 mls/hr ONCE ONCE IV 03/02/25 10:15 03/02/25 11:14 DC 03/02/25 11:40 Hydralazine HCl 10 mg ONCE ONCE IV 03/02/25 14:45 03/02/25 14:48 DC 03/02/25 14:45 Pantoprazole Sodium 40 mg ONCE ONCE IV 03/02/25 10:00 03/02/25 10:07 DC 03/02/25 11:40 Sodium Chloride 500 ml @ 500 mls/hr Q1H ONCE IV 03/02/25 10:00 03/02/25 10:59 DC 03/02/25 11:41 Departure 1 Departure Time of Disposition: 14:30 Impression: Primary Impression: Lower GI bleeding Additional Impression: Hypertensive emergency Disposition: 30 STILL A PATIENT Admit to: Tele Condition: Guarded Critical Care Note Critical Care Time?: No Stability Stability form required: GANESH Kenny RESIDENT Mar 02, 2025 09:51
[2025-03-02 10:27] LABS: Hematocrit 43.4 % (36.0-46.0); Hemoglobin 14.5 g/dL (12.2-16.2); Mean Corpuscular Hemoglobin 32.0 pg (28.0-32.0); Mean Corpuscular Volume 95.7 fL (80.0-100.0); Nucleated Red Blood Cells % 0.1 %
[2025-03-02 10:40] LABS: INR 1.19 (0.9-1.15); Partial Thromboplastin Time 28.4 SEC (24.5-34.5); Prothrombin Time 12.4 sec (9.3-11.8)
[2025-03-02 10:43] LABS: Alanine Aminotransferase 17 U/L (7-40); Albumin 4.1 g/dL (3.2-4.8); Alkaline Phosphatase 81 U/L (46-116); Anion Gap 8 (5-15); BUN/Creatinine Ratio 25.0 (10.0-20.0); Bilirubin, Total 0.7 mg/dL (0.2-1.0); Blood Urea Nitrogen 22 mg/dL (9-23); Calcium 9.1 mg/dL (8.7-10.4); Carbon Dioxide 25 mmol/L (20-31); Chloride 108 mmol/L (98-107); Glucose 78 mg/dL (74-106); Potassium 3.7 mmol/L (3.5-5.1); Sodium 141 mmol/L (136-145); Total Protein 7.1 g/dL (5.7-8.2)
[2025-03-02] MEDS: CLINDAMYCIN 300MG IV 50 ML IV ONE (11:40)
[2025-03-02] MEDS: PANTOPRAZOLE 40 MG/10 ML VIAL INJ IV ONE (11:40)
[2025-03-02] MEDS: SODIUM CHLORIDE 0.9% 500 ML IV ONE (11:41)
[2025-03-02 11:59] LABS: Urine Protein, UAD Negative (Negative)
--- NOTE | 2025-03-02 14:19 | DVH ---
Bilateral lower extremity venous duplex Clinical History: pain; To rule out DVT Comparison: CT ANGIO EXTREMITY BILAT on DOS: 04/01/24, PELVIC on DOS: 02/04/20, CT ABD PELVIS WO CONTRAS T on DOS: 02/04/20 Technique: Duplex Doppler evaluation of the deep venous systems of both lower extremities from the common femora l veins to the popliteal veins including color Doppler and spectral/pulsed waveform analysis was perf ormed. Findings: RIGHT SIDE: The common femoral vein demonstrates appropriate compressibility and waveform variability. There is compressibility/patency of the great saphenous vein at the proximal thigh. The femoral vein demonstrates appropriate compressibility and waveform variability. The deep femoral vein demonstrates appropriate compressibility and waveform variability. The popliteal vein demonstrates appropriate compressibility and waveform variability. There is normal compressibility at the tibioperoneal trunk. LEFT SIDE: The common femoral vein demonstrates appropriate compressibility and waveform variability. There is compressibility/patency of the great saphenous vein at the proximal thigh. The femoral vein demonstrates appropriate compressibility and waveform variability. The deep femoral vein demonstrates appropriate compressibility and waveform variability. The popliteal vein demonstrates appropriate compressibility and waveform variability. There is normal compressibility at the tibioperoneal trunk. Impression: No right or left femoropopliteal venous thrombosis.
[2025-03-02] MEDS: hydrALAZINE HCL 20 MG/ML VL IV ONE ×2 (14:45→16:45)
[2025-03-02 15:30] VITALS: PULSE 62; RESP 15; O2SAT 94
--- NOTE | 2025-03-02 15:50 | DVH ---
CHEST RADIOGRAPH Indication: chf Technique: Single frontal view of the chest was obtained COMPARISON: XY CHEST XRAY 1 VIEW on DOS: 04/01/24, CT ANGIO CHEST CONTRAST on DOS: 05/05/22, CXRP on DO S: 05/05/22, CHEST PORTABLE on DOS: 05/05/22, CHEST PORTABLE on DOS: 02/04/20 FINDINGS: Lines and Tubes: None Lungs: Increased interstitial prominence Pleura: No effusion. No pneumothorax. Cardiomediastinal contours: Cardiomegaly Bones: Unremarkable IMPRESSION: Increased interstital prominence. This may represent pulmonary vascular congestion or viral pneumonia . Clinical correlation advised.
[2025-03-02] MEDS: PANTOPRAZOLE 40mg/50ML NS AE 50 ML IV ONE (16:40)
[2025-03-02] MEDS ORDERED: HYDROcodone-ACET 5/325MG TAB PO PRN (19:00)
[2025-03-02] MEDS ORDERED: ACETAMINOPHEN 325 MG TAB PO PRN (19:00)
[2025-03-02] MEDS ORDERED: DOCUSATE SOD 100 MG CAP PO PRN (19:00)
[2025-03-02] MEDS ORDERED: ONDANSETRON HCL 4 MG/2 ML VIAL IV PRN (19:00)
--- NOTE | 2025-03-02 19:04 | DVHHP2 ---
Admitting Diagnosis: Lower GI bleed History of Present Illness This is a 84-year-old female with past medical history of CAD, hypertension, hypothyroidism, CHF, AFib, DVT, hyperlipidemia presented to the ED with a chief complaint of per rectal bleeding since morning. The patient states that she started taking Eliquis 4 days ago and since morning she had 3 bowel movement that mostly contained fresh blood. She denies abdominal pain, chills, fever, chest pain, dizziness, blurred vision, shortness of breath, dysuria, hematuria. She was diagnosed with DVT of right leg in last March, but she was not continuing Eliquis. She also mentioned was on hospice from March, to Nov, 2024 for CHF. Last dose of Eliquis generally 31 evening. 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 Family History Family History: Reviewed,noncontributory to illness Social History Smoker: Non-Smoker Alcohol: Denies ETOH Use Drugs: Denies Drug Use Lives In: Home Patient Family History: Cardiovascular disease G8 MOTHER Diabetes mellitus G8 MOTHER FHx: epilepsy G8 MOTHER Hypertension G8 MOTHER Allergies: Coded Allergies: No Known Drug Allergy (Verified Allergy, Unknown, 02/04/20) Home Meds Active Scripts Amiodarone Hcl (Amiodarone Hcl) 200 Mg Tab, 200 MG PO BID for 30 Days, #60 TAB 2 Refills Prov:CRISTINE PACHECO MD 05/08/22 Metoprolol Tartrate (Lopressor) 25 Mg Tb, 12.5 MG PO BID, #60 TAB Prov:ABDULLAHI LUX MD 02/08/20 Verapamil Hcl (Calan Sr) 120 Mg Tab, 120 MG PO DAILY, #30 TAB Prov:ABDULLAHI LUX MD 02/08/20 Sucralfate (CARAFATE) 1 Gm Tab, 1 GM PO ACHS, #120 TAB Prov:ABDULLAHI LUX MD 02/08/20 Pantoprazole Sodium Sesquihydr (Protonix) 40 Mg Tab, 40 MG PO BID, #60 TAB Prov:ABDULLAHI LUX MD 02/08/20 Reported Medications Furosemide (Furosemide) 20 Mg Tab, 1 TAB PO DAILY 05/06/22 Atorvastatin Calcium (ATORVASTATIN CALCIUM) 40 Mg Tab, 1 TAB PO HS 05/06/22 Sildenafil Citrate (SILDENAFIL CITRATE) 20 Mg Tab, 1 TAB PO BID 05/06/22 Amlodipine Besylate (Amlodipine Besylate) 2.5 Mg Tab, 1 TAB PO BID 05/06/22 Levothyroxine Sodium (Levothyroxine Sodium) 75 Mcg Tab, 1 TAB PO DAILY 05/06/22 Atorvastatin Calcium (Lipitor) 10 Mg Tab, 1 TAB PO DAILY, #30 TAB 5 Refills 02/06/20 Current Medications Current Medications Medications (Trade) Dose Ordered Sig/Steve Route PRN Reason Start Time Stop Time Status Last Admin Amiodarone HCl (Cordarone Tablet) 200 mg BID PO 03/02/25 22:00 UNV Furosemide (Lasix Tablet) 20 mg DAILY PO 03/03/25 10:00 UNV Metoprolol Tartrate (Lopressor Tablet) 12.5 mg BID PO 03/02/25 22:00 UNV Pantoprazole Sodium (Protonix Tablet) 40 mg BID PO 03/02/25 22:00 UNV Sildenafil Citrate (Revatio) 20 mg BID PO 03/02/25 22:00 UNV Sucralfate (Carafate Tab) 1 gm ACHS PO 03/02/25 22:00 UNV Verapamil HCl (Cal[place] Sr) 120 mg DAILY PO 03/03/25 10:00 UNV Patient Own Medication 1 tab BID PO 03/02/25 22:00 UNV Patient Own Medication 1 tab HS PO 03/02/25 22:00 UNV Patient Own Medication 1 tab DAILY PO 03/03/25 10:00 UNV Patient Own Medication 1 tab DAILY PO 03/03/25 10:00 UNV Sodium Chloride (Saline Lock Ns) 10 ml Q8HR IV 03/02/25 22:00 UNV Docusate Sodium (Colace Capsule) 100 mg BIDPRN PRN PO FOR CONSTIPATION 03/02/25 19:00 UNV Acetaminophen (Tylenol Tablet) 650 mg Q6HP PRN PO PAIN SCALE 1-3 OR TEMP>100.4 03/02/25 19:00 UNV Acetaminophen/ Hydrocodone Bitart ([place] 5/325MG Tab) 1 tab Q4HP PRN PO MODERATE PAIN (4-6 PAIN SCALE) 03/02/25 19:00 UNV Ondansetron HCl (Zofran) 4 mg Q4HP PRN IV NAUSEA / VOMITING 03/02/25 19:00 UNV Pantoprazole Sodium (Protonix) 40 mg DAILY IV 03/02/25 19:00 UNV Vital Signs Vital Signs Date Time Temp Pulse Resp B/P (MAP) Pulse Ox O2 Delivery O2 Flow Rate FiO2 03/02/25 17:45 96 18 121/88 (99) 98 03/02/25 15:30 Nasal Cannula* 2 28 03/02/25 13:58 98.7 98.7 Physical Exam Generally-84 years old woman, well nourished well developed. No apparent distress. Resting on bed HEENT-atraumatic, normocephalic Heart-regular rate and rhythm clear to auscultate Abdomen soft nontender nondistended Musculoskeletal-no cyanosis positive pedal edema Neuro-AO x3, no focal deficits SEPSIS Sepsis Screen Date sepsis recognized/suspect: Mar 02, 2025 Time Sepsis recognized/suspect: 1518 Recent Procedure: No On Antibiotic Therapy: No Respiratory Rate >20: No Heart Rate >90: No Temp<36 C (96.8 F) or >38.3 C: No SBP <90 or MAP <65 mmHG: No New Acute Mental Status Change: No Is the patient on CPAP, BIPAP,: No Physician Orders Bilat Lower Dvt (03/02/25 09:48) Saline Lock (03/02/25 11:28) Chest Portable (03/02/25 15:16) Pantoprazole 40mg/50ml Ns Ae (Protonix) (03/02/25 15:30) * [facility] Community Assistant Manager (03/02/25 15:16) Complete Blood Count (03/02/25 18:56) Complete Blood Count (03/03/25 02:56) Complete Blood Count (03/03/25 10:56) Complete Blood Count (03/03/25 18:56) Complete Blood Count (03/04/25 02:56) Amiodarone Tablet (Cordarone Tablet) (03/02/25 22:00) Furosemide Tablet (Lasix Tablet) (03/03/25 10:00) Metoprolol Tartrate Tablet (Lopressor Ta (03/02/25 22:00) Pantoprazole Tablet (Protonix Tablet) (03/02/25 22:00) Sildenafil Citrate (Revatio) (03/02/25 22:00) Sucralfate Tab (Carafate Tab) (03/02/25 22:00) Verapamil Er (Calan Sr) (03/03/25 10:00) (Nf) Amlodipine Besylate (03/02/25 22:00) (Nf) Atorvastatin Calcium (03/02/25 22:00) (Nf) Atorvastatin Calcium (Lipitor) (03/03/25 10:00) (Nf) Levothyroxine Sodium (03/03/25 10:00) Admit (03/02/25 18:56) Code Status (03/02/25 18:56) Vital Signs .PER UNIT PROTOCOL (03/02/25 18:56) Review Orders With Adm. (03/02/25 18:56) Encourage Activity As Tolerate (03/02/25 18:56) Npo (Nothing By Mouth) Diet (03/03/25 Breakfast) Sodium Chloride Lock (Saline Lock Ns) (03/02/25 22:00) Docusate Sodium Capsule (Colace Capsule) (03/02/25 19:00) Acetaminophen Tablet (Tylenol Tablet) (03/02/25 19:00) Notify Md Of Changes From Base (03/02/25 18:56) Advance Directive (03/02/25 18:56) Patient Condition (03/02/25 18:56) Allergies (03/02/25 18:56) Hydrocodone-Acet 5/325mg Tab ([place] 5/32 (03/02/25 19:00) Ondansetron Hcl (Zofran) (03/02/25 19:00) Sequential Compression Device (03/02/25 18:56) Pantoprazole (Protonix) (03/02/25 19:00) Comprehensive Metabolic Panel (03/03/25 05:00) Comprehensive Metabolic Panel (03/04/25 05:00) Comprehensive Metabolic Panel (03/05/25 05:00) Comprehensive Metabolic Panel (03/06/25 05:00) Comprehensive Metabolic Panel (03/07/25 05:00) Vital Signs Date Time Temp Pulse Resp B/P (MAP) Pulse Ox O2 Delivery O2 Flow Rate FiO2 03/02/25 17:45 96 18 121/88 (99) 98 03/02/25 16:45 185/80 03/02/25 16:40 54 20 185/80 (115) 97 03/02/25 15:30 62 15 94 Nasal Cannula* 2 28 03/02/25 14:45 206/102 03/02/25 14:38 74 15 195/98 (130) 96 03/02/25 13:58 98.7 51 18 238/106 (150) 96 98.7 03/02/25 10:48 97.6 56 22 159/72 (101) 95 97.6 03/02/25 10:48 56 22 95 Room Air 03/02/25 09:30 98.5 51 16 184/62 91 98.5 Laboratory Tests Test 03/02/25 10:07 White Blood Count 5.2 10^3/uL (4.4-10.8) Medications Medications Dose Ordered Sig/Steve Route Start Time Stop Time Status Last Admin Dose Admin Clindamycin Phosphate 50 ml @ 50 mls/hr ONCE ONCE IV 03/02/25 10:15 03/02/25 11:14 DC 03/02/25 11:40 Hydralazine HCl 10 mg ONCE ONCE IV 03/02/25 14:45 03/02/25 14:48 DC 03/02/25 14:45 Hydralazine HCl 10 mg ONCE ONCE IV 03/02/25 16:45 03/02/25 16:48 DC 03/02/25 16:45 Pantoprazole Sodium 40 mg ONCE ONCE IV 03/02/25 10:00 03/02/25 10:07 DC 03/02/25 11:40 Pantoprazole Sodium 50 ml @ 10 mls/hr Q5H ONCE IV 03/02/25 15:30 03/02/25 20:29 03/02/25 16:40 Sodium Chloride 500 ml @ 500 mls/hr Q1H ONCE IV 03/02/25 10:00 03/02/25 10:59 DC 03/02/25 11:41 Results Labs Test 03/02/25 10:38 03/02/25 10:07 Range/Units Urine Color Light-yellow Yellow Urine Clarity Clear Clear Urine pH 6.5 5.0-9.0 Urine Specific [place] 1.009 1.001-1.035 Urine Protein Negative Negative Urine Ketones Negative Negative Urine Blood 2+ H Negative /uL Urine Nitrite Negative Negative Urine Bilirubin Negative Negative Urine Urobilinogen Normal Negative mg/dL Urine Leukocyte Esterase Trace Negative /uL Urine RBC <1 0 - 4 /hpf Urine Microscopic WBC 4 0-5 /HPF Urine Squamous Epithelial Cells Few <5 /hpf Urine Bacteria Few H None Seen /hpf Urine Glucose Normal Normal mg/dL Stool Occult Blood Positive Negative Stool Occult Blood Sample #3 Negative White Blood Count 5.2 4.4-10.8 10^3/uL Red Blood Count 4.54 4.0-5.20 10^6/uL Hemoglobin 14.5 12.2-16.2 g/dL Hematocrit 43.4 36.0-46.0 % Mean Corpuscular Volume 95.7 80.0-100.0 fL Mean Corpuscular Hemoglobin 32.0 28.0-32.0 pg Mean Corpuscular Hemoglobin Concent 33.4 32.0-36.0 g/dL Red Cell Distribution Width 15.3 H 11.8-14.3 % Platelet Count 181 140-450 10^3/uL Mean Platelet Volume 8.6 6.9-10.8 fL Neutrophils (%) (Auto) 64.7 37.0-80.0 % Lymphocytes (%) (Auto) 21.1 10.0-50.0 % Monocytes (%) (Auto) 9.8 0.0-12.0 % Eosinophils (%) (Auto) 3.2 0.0-7.0 % Basophils (%) (Auto) 1.2 0.0-2.0 % Neutrophils # (Auto) 3.4 1.6-8.6 10 ^3/uL Lymphocytes # (Auto) 1.1 0.4-5.4 10 ^3/uL Monocytes # (Auto) 0.5 0-1.3 10 ^3/uL Eosinophils # (Auto) 0.2 0-0.8 10 ^3/uL Basophils # (Auto) 0.1 0-0.2 10 ^3/uL Nucleated Red Blood Cells 0.1 % Prothrombin Time 12.4 H 9.3-11.8 sec Prothrombin Time INR 1.19 H 0.9-1.15 Activated Partial Thromboplast Time 28.4 24.5-34.5 SEC Sodium Level 141 136-145 mmol/L Potassium Level 3.7 3.5-5.1 mmol/L Chloride Level 108 H 98-107 mmol/L Carbon Dioxide Level 25 20-31 mmol/L Anion Gap 8 5-15 Blood Urea Nitrogen 22 9-23 mg/dL Creatinine 0.88 0.550-1.02 mg/dL Glomerular Filtration Rate Calc 64 >90 mL/min BUN/Creatinine Ratio 25.0 H 10.0-20.0 Serum Glucose 78 74-106 mg/dL Calcium Level 9.1 8.7-10.4 mg/dL Total Bilirubin 0.7 0.2-1.0 mg/dL Aspartate Amino Transferase (AST) 20 13-40 U/L Alanine Aminotransferase (ALT) 17 7-40 U/L Alkaline Phosphatase 81 46-116 U/L B-Type Natriuretic Peptide 685.77 0-100 pg/mL Total Protein 7.1 5.7-8.2 g/dL Albumin 4.1 3.2-4.8 g/dL Primary Diagnosis Lower GI bleed AFib on Eliquis DVT on Eliquis Plan Patient has started taking Eliquis four days ago for AFib and DVT. Status post evening dose March 01. Patient did not take Eliquis this morning. Hold Eliquis bnp elevated, does not look decompensated. will resume po lasix. if became decompensated or hypoxic, start iv lasix Check CBC q.8 hours Hemoglobin goal greater than seven GI consult resume home meds. Including antihypertensive medication. Patient is having hypertensive urgency. If patient is having mariam GI bleed or began to be hypotensive, hold blood pressure medications SCD for DVT prophylaxis PPI for GI prophylaxis Full Code Plan discussed with: Patient Problems List: (1) Lower GI bleeding Status: Acute (2) CHF (congestive heart failure) Status: Acute Date of Service: Mar 02, 2025 Billing Provider: TITA GARDNER MD Common Visit Codes: 57895-PGETIST INP/OBS CARE (HIGH) TITA GARDNER MD Mar 02, 2025 19:04
[2025-03-02 19:30] VITALS: PULSE 74; RESP 21; O2SAT 97
[2025-03-02 19:33] LABS: Hematocrit 44.4 % (36.0-46.0); Hemoglobin 15.0 g/dL (12.2-16.2); Mean Corpuscular Hemoglobin 32.5 pg (28.0-32.0); Mean Corpuscular Volume 96.1 fL (80.0-100.0); Nucleated Red Blood Cells % 0.3 %
[2025-03-02] MEDS: PANTOPRAZOLE 40 MG/10 ML VIAL INJ IV SCH (21:00)
[2025-03-02] MEDS: AMIODARONE HCL 200 MG TAB PO SCH (21:34)
[2025-03-02] MEDS: SUCRALFATE 1 GM TAB PO SCH (21:34)
[2025-03-02] MEDS: METOPROLOL TARTRATE 25 MG TAB PO SCH (21:36)
[2025-03-02] MEDS ORDERED: PATIENTS OWN MEDICATION (Atorvastatin Calcium 1 TAB) PO SCH (22:00)
[2025-03-02] MEDS ORDERED: PANTOPRAZOLE 40 MG TAB PO SCH (22:00)
[2025-03-02] MEDS: SILDENAFIL CITRATE 20 MG TAB PO SCH (22:00)
[2025-03-02] MEDS: SODIUM CHLOR 0.9% PF (SALINE LOCK) 10ML VIAL/SYR IV SCH (22:09)
--- NOTE | 2025-03-02 22:58 | ECG ---
[facility] Test Date: 2025-03-02 Test Time: 09:47:20 Pat Name: EFREN ESTRADA Department: ED Room: 0290T Gender: F Intelligence Chief: ALEXANDRU : 1940 Requested By: GANESH MAO Order Number: [id number] Reading MD: Arnav Suárez Measurements Intervals [place] Rate: 53 P: 35 VA: 219 QRS: 34 QRSD: 106 T: 75 QT: 478 QTc: 449 Interpretive Statements Sinus rhythm Borderline prolonged VA interval Left atrial enlargement Left ventricular hypertrophy Borderline ST elevation, lateral leads Electronically Signed On 03-05-2025 22:01:42 PDT by Arnav Suárez Please click the below link to view image of tracing.
[2025-03-02 23:53] VITALS: BP 101/78; PULSE 97; RESP 18; TEMP 98.6; O2SAT 97
[2025-03-02 23:58] VITALS: BP 101/78; PULSE 97; RESP 18; TEMP 98.6; O2SAT 97
[2025-03-03] VITALS (8 sets, daily range): BP systolic 120–174; BP diastolic 58–79; PULSE 50–92; RESP 17–20; TEMP 97.5–98; O2SAT 91–96
[2025-03-03 02:55] LABS: Hematocrit 43.7 % (36.0-46.0); Hemoglobin 14.7 g/dL (12.2-16.2); Mean Corpuscular Hemoglobin 32.2 pg (28.0-32.0); Mean Corpuscular Volume 95.4 fL (80.0-100.0); Nucleated Red Blood Cells % 0.2 %
[2025-03-03 03:06] LABS: Alanine Aminotransferase 14 U/L (7-40); Albumin 3.7 g/dL (3.2-4.8); Alkaline Phosphatase 77 U/L (46-116); Anion Gap 8 (5-15); BUN/Creatinine Ratio 22.0 (10.0-20.0); Blood Urea Nitrogen 18 mg/dL (9-23); Calcium 9.0 mg/dL (8.7-10.4); Carbon Dioxide 23 mmol/L (20-31); Glucose 96 mg/dL (74-106); Potassium 4.0 mmol/L (3.5-5.1); Sodium 141 mmol/L (136-145); Total Protein 6.5 g/dL (5.7-8.2)
[2025-03-03 03:07] LABS: Bilirubin, Total 0.9 mg/dL (0.2-1.0)
[2025-03-03 03:40] LABS: Chloride 110 mmol/L (98-107)
[2025-03-03] MEDS: LEVOTHYROXINE SODIUM 50 MCG TAB PO SCH (06:05)
[2025-03-03] MEDS ORDERED: GOLYTELY 4L KIT PO ONE (07:45)
--- NOTE | 2025-03-03 07:47 | DVHINCON2 ---
Date of service: Mar 03, 2025 Referring Physician Vasu Reason for Consultation Bloody diarrhea History of Present Illness The patient is a 84-year-old female with past medical history significant for coronary artery disease history of [place], atrial fibrillation, CHF, elevated BNP, history of DVT, recently on Eliquis, noted to have several episodes of hematochezia with diarrhea. Patient has no prior history of similar findings. She denies any history of a colonoscopy. Patient was on hospice for CHF up until November 2024. She denies any significant abdominal pain other than pain in the rectal area with wiping due to the diarrhea. She denies any fevers or chills, chest pain or shortness of breath, nausea or vomiting. GI consultation was obtained for evaluation. Patient's hemoglobin is noted to be normal. Past Medical History As above Hypothyroidism AFib History of DVT History of CHF History of CAD History of [place] Past Surgical History Tonsillectomy Family History: Cardiovascular disease G8 MOTHER Diabetes mellitus G8 MOTHER FHx: epilepsy G8 MOTHER Hypertension G8 MOTHER Family History Denies gastrointestinal diseases or malignancy Social History No tobacco, alcohol or recreational drug abuse Allergies: Coded Allergies: No Known Drug Allergy (Verified Allergy, Unknown, 02/04/20) Home Meds Active Scripts Amiodarone Hcl (Amiodarone Hcl) 200 Mg Tab, 200 MG PO BID for 30 Days, #60 TAB 2 Refills Prov:CRISTINE PACHECO MD 05/08/22 Metoprolol Tartrate (Lopressor) 25 Mg Tb, 12.5 MG PO BID, #60 TAB Prov:ABDULLAHI LUX MD 02/08/20 Verapamil Hcl (Calan Sr) 120 Mg Tab, 120 MG PO DAILY, #30 TAB Prov:ABDULLAHI LUX MD 02/08/20 Sucralfate (CARAFATE) 1 Gm Tab, 1 GM PO ACHS, #120 TAB Prov:ABDULLAHI LUX MD 02/08/20 Pantoprazole Sodium Sesquihydr (Protonix) 40 Mg Tab, 40 MG PO BID, #60 TAB Prov:ABDULLAHI LUX MD 02/08/20 Reported Medications Furosemide (Furosemide) 20 Mg Tab, 1 TAB PO DAILY 05/06/22 Atorvastatin Calcium (ATORVASTATIN CALCIUM) 40 Mg Tab, 1 TAB PO HS 05/06/22 Sildenafil Citrate (SILDENAFIL CITRATE) 20 Mg Tab, 1 TAB PO BID 05/06/22 Amlodipine Besylate (Amlodipine Besylate) 2.5 Mg Tab, 1 TAB PO BID 05/06/22 Levothyroxine Sodium (Levothyroxine Sodium) 75 Mcg Tab, 1 TAB PO DAILY 05/06/22 Atorvastatin Calcium (Lipitor) 10 Mg Tab, 1 TAB PO DAILY, #30 TAB 5 Refills 02/06/20 Current Medications Current Medications Medications (Trade) Dose Ordered Sig/Steve Route PRN Reason Start Time Stop Time Status Last Admin Amiodarone HCl (Cordarone Tablet) 200 mg BID PO 03/02/25 22:00 03/02/25 21:34 Furosemide (Lasix Tablet) 20 mg DAILY PO 03/03/25 10:00 Metoprolol Tartrate (Lopressor Tablet) 12.5 mg BID PO 03/02/25 22:00 03/02/25 21:36 Pantoprazole Sodium (Protonix Tablet) 40 mg BID PO 03/02/25 22:00 03/02/25 19:29 DC Sildenafil Citrate (Revatio) 20 mg BID PO 03/02/25 22:00 Sucralfate (Carafate Tab) 1 gm ACHS PO 03/02/25 22:00 03/02/25 21:34 Verapamil HCl (Calan Sr) 120 mg DAILY PO 03/03/25 10:00 03/02/25 19:32 DC Amlodipine Besylate (Norvasc Tablet) 2.5 mg BID PO 03/02/25 22:00 03/02/25 21:34 Patient Own Medication 1 tab HS PO 03/02/25 22:00 03/02/25 19:36 DC Atorvastatin Calcium (Lipitor) 10 mg DAILY PO 03/03/25 10:00 Levothyroxine Sodium (Synthroid Tablet) 75 mcg QAM PO 03/03/25 07:00 Sodium Chloride (Saline Lock Ns) 10 ml Q8HR IV 03/02/25 22:00 03/03/25 06:05 Docusate Sodium (Colace Capsule) 100 mg BIDPRN PRN PO FOR CONSTIPATION 03/02/25 19:00 Acetaminophen (Tylenol Tablet) 650 mg Q6HP PRN PO PAIN SCALE 1-3 OR TEMP>100.4 03/02/25 19:00 Acetaminophen/ Hydrocodone Bitart ([place] 5/325MG Tab) 1 tab Q4HP PRN PO MODERATE PAIN (4-6 PAIN SCALE) 03/02/25 19:00 Ondansetron HCl (Zofran) 4 mg Q4HP PRN IV NAUSEA / VOMITING 03/02/25 19:00 Pantoprazole Sodium (Protonix) 40 mg DAILY IV 03/02/25 20:00 03/02/25 21:00 Review of Systems General no significant weight changes Cardiac: As per HPI Pulmonary: No cough wheeze shortness breath Endocrine: History of hypothyroidism Heme: History of DVT Skin: No rashes or bruises GI: See HPI : No dysuria hematuria Room: No recent fractures significant arthralgias or myalgias Neuro: No stroke or seizure Psych: No depression anxiety or psychosis Head: No headaches or dizziness Vital Signs Vital Signs Date Time Temp Pulse Resp B/P (MAP) Pulse Ox O2 Delivery O2 Flow Rate FiO2 03/03/25 05:00 98.0 78 18 149/78 (101) 96 98.0 03/03/25 02:24 Nasal Cannula* 2 28 Physical Exam General: Alert elderly female sitting on the toilet HEENT: NC/AT EOMI PERRLA O/P clear Abdomen Soft nontender nondistended Extremities: No clubbing cyanosis or edema Labs/Diagnostic Data Labs Test 03/03/25 05:43 03/03/25 02:40 03/02/25 10:38 03/02/25 10:07 Range/Units Troponin I High Sensitivity 1332 *H </=34 ng/L White Blood Count 6.8 4.4-10.8 10^3/uL Red Blood Count 4.58 4.0-5.20 10^6/uL Hemoglobin 14.7 12.2-16.2 g/dL Hematocrit 43.7 36.0-46.0 % Mean Corpuscular Volume 95.4 80.0-100.0 fL Mean Corpuscular Hemoglobin 32.2 H 28.0-32.0 pg Mean Corpuscular Hemoglobin Concent 33.7 32.0-36.0 g/dL Red Cell Distribution Width 15.4 H 11.8-14.3 % Platelet Count 208 140-450 10^3/uL Mean Platelet Volume 8.8 6.9-10.8 fL Neutrophils (%) (Auto) 73.4 37.0-80.0 % Lymphocytes (%) (Auto) 14.9 10.0-50.0 % Monocytes (%) (Auto) 8.5 0.0-12.0 % Eosinophils (%) (Auto) 2.3 0.0-7.0 % Basophils (%) (Auto) 0.9 0.0-2.0 % Neutrophils # (Auto) 5.0 1.6-8.6 10 ^3/uL Lymphocytes # (Auto) 1.0 0.4-5.4 10 ^3/uL Monocytes # (Auto) 0.6 0-1.3 10 ^3/uL Eosinophils # (Auto) 0.2 0-0.8 10 ^3/uL Basophils # (Auto) 0.1 0-0.2 10 ^3/uL Nucleated Red Blood Cells 0.2 % Sodium Level 141 136-145 mmol/L Potassium Level 4.0 3.5-5.1 mmol/L Chloride Level 110 H 98-107 mmol/L Carbon Dioxide Level 23 20-31 mmol/L Anion Gap 8 5-15 Blood Urea Nitrogen 18 9-23 mg/dL Creatinine 0.82 0.550-1.02 mg/dL Glomerular Filtration Rate Calc 70 >90 mL/min BUN/Creatinine Ratio 22.0 H 10.0-20.0 Serum Glucose 96 74-106 mg/dL Calcium Level 9.0 8.7-10.4 mg/dL Total Bilirubin 0.9 0.2-1.0 mg/dL Aspartate Amino Transferase (AST) 21 13-40 U/L Alanine Aminotransferase (ALT) 14 7-40 U/L Alkaline Phosphatase 77 46-116 U/L Total Protein 6.5 5.7-8.2 g/dL Albumin 3.7 3.2-4.8 g/dL Urine Color Light-yellow Yellow Urine Clarity Clear Clear Urine pH 6.5 5.0-9.0 Urine Specific [place] 1.009 1.001-1.035 Urine Protein Negative Negative Urine Ketones Negative Negative Urine Blood 2+ H Negative /uL Urine Nitrite Negative Negative Urine Bilirubin Negative Negative Urine Urobilinogen Normal Negative mg/dL Urine Leukocyte Esterase Trace Negative /uL Urine RBC <1 0 - 4 /hpf Urine Microscopic WBC 4 0-5 /HPF Urine Squamous Epithelial Cells Few <5 /hpf Urine Bacteria Few H None Seen /hpf Urine Glucose Normal Normal mg/dL Stool Occult Blood Positive Negative Stool Occult Blood Sample #3 Negative Prothrombin Time 12.4 H 9.3-11.8 sec Prothrombin Time INR 1.19 H 0.9-1.15 Activated Partial Thromboplast Time 28.4 24.5-34.5 SEC B-Type Natriuretic Peptide 685.77 0-100 pg/mL Assessment 1. Lower GI bleed 2. Significant cardiac comorbidities 3. History of anticoagulant use 4. NSTEMI Differential diagnosis includes ischemic colitis, versus infectious colitis or inflammatory colitis, versus hemorrhoids, diverticular, or AVM versus malignancy versus other. Patient has no prior history of colonoscopy Problems(with codes): (1) Non-STEMI (non-ST elevated myocardial infarction) (2) Arterial occlusion, lower extremity (3) Hypertensive emergency (4) Lower GI bleeding (5) CHF (congestive heart failure) Plan/Recommendation 1. Clear liquid diet as tolerated 2. Obtain cardiac clearance for possible colonoscopy. Given patient's comorbidities including CHF not sure she would be a good candidate for GoLYTELY preparation especially in the setting of the normal hemoglobin 3. Hold anticoagulation 4. We will follow 5. Continue current medication Plan discussed with: Patient LALITO VAUGHAN MD Mar 03, 2025 07:47
[2025-03-03] MEDS ORDERED: VERAPAMIL HCL 120 mg ER tab PO SCH (10:00)
[2025-03-03] MEDS: ATORVASTATIN 20 MG TAB PO SCH (10:04)
[2025-03-03] MEDS: FUROSEMIDE 20 MG TAB PO SCH (10:05)
[2025-03-03 13:23] LABS: Hematocrit 41.5 % (36.0-46.0); Hemoglobin 14.1 g/dL (12.2-16.2); Mean Corpuscular Hemoglobin 32.6 pg (28.0-32.0); Mean Corpuscular Volume 95.7 fL (80.0-100.0); Nucleated Red Blood Cells % 0.1 %
--- NOTE | 2025-03-03 15:40 | DVHPN2 ---
Subjective Continues to have rectal bleed with melena Reviewed: Care Plan, H&P, Labs, Medications, Previous Orders, Radiology, Other (Consultation) Changes from previous H/P or p: No Changes Objective Vitals Vital Signs Date Time Temp Pulse Resp B/P (MAP) Pulse Ox O2 Delivery O2 Flow Rate FiO2 03/03/25 13:00 97.5 89 18 120/58 (78) 91 97.5 03/03/25 02:24 Nasal Cannula* 2 28 Intake/Output Intake and Output 03/03/25 07:00 Intake Total 550 ml Balance 550 ml Intake Oral 0 ml IV Total 550 ml # Voids 1 General Appearance: Alert, Oriented X3, Cooperative, No acute distress HEENT: Atraumatic Lungs: Clear to auscultation, Normal air movement Cardiovascular: Regular rate, Normal S1, Normal S2 Abdomen: Normal bowel sounds, Soft, No tenderness Neuro: Normal speech, Cranial nerves 3-12 NL Psych/Mental Status: Mental status NL, Mood NL Medications Current Medications Medications Dose Ordered Sig/Steve Route Start Time Stop Time Status Last Admin Dose Admin Amiodarone HCl 200 mg BID PO 03/02/25 22:00 03/03/25 10:04 200 MG Furosemide 20 mg DAILY PO 03/03/25 10:00 03/03/25 10:05 20 MG Metoprolol Tartrate 12.5 mg BID PO 03/02/25 22:00 03/02/25 21:36 12.5 MG Sildenafil Citrate 20 mg BID PO 03/02/25 22:00 03/03/25 10:05 20 MG Sucralfate 1 gm ACHS PO 03/02/25 22:00 03/03/25 11:26 1 GM Amlodipine Besylate 2.5 mg BID PO 03/02/25 22:00 03/02/25 21:34 2.5 MG Atorvastatin Calcium 10 mg DAILY PO 03/03/25 10:00 03/03/25 10:04 10 MG Levothyroxine Sodium 75 mcg QAM PO 03/03/25 07:00 Sodium Chloride 10 ml Q8HR IV 03/02/25 22:00 03/03/25 14:01 10 ML Docusate Sodium 100 mg BIDPRN PRN PO 03/02/25 19:00 Acetaminophen 650 mg Q6HP PRN PO 03/02/25 19:00 Acetaminophen/ Hydrocodone Bitart 1 tab Q4HP PRN PO 03/02/25 19:00 Ondansetron HCl 4 mg Q4HP PRN IV 03/02/25 19:00 Pantoprazole Sodium 40 mg DAILY IV 03/02/25 20:00 03/03/25 10:04 40 MG Laboratory Results Laboratory Tests 03/03/25 02:40 03/03/25 13:04 Chemistry Test 03/03/25 02:40 Albumin 3.7 g/dL (3.2-4.8) Calcium Level 9.0 mg/dL (8.7-10.4) Total Protein 6.5 g/dL (5.7-8.2) LFT Test 03/03/25 02:40 Alanine Aminotransferase (ALT) 14 U/L (7-40) Alkaline Phosphatase 77 U/L (46-116) Aspartate Amino Transferase (AST) 21 U/L (13-40) Total Bilirubin 0.9 mg/dL (0.2-1.0) Urinalysis Test 03/02/25 10:38 Urine Color Light-yellow (Yellow) Urine Clarity Clear (Clear) Urine pH 6.5 (5.0-9.0) Urine Specific [place] 1.009 (1.001-1.035) Urine Protein Negative (Negative) Urine Ketones Negative (Negative) Urine Blood 2+ /uL (Negative) H Urine Nitrite Negative (Negative) Urine Bilirubin Negative (Negative) Urine Urobilinogen Normal mg/dL (Negative) Urine Leukocyte Esterase Trace /uL (Negative) Urine RBC <1 /hpf (0 - 4) Urine Microscopic WBC 4 /HPF (0-5) Urine Squamous Epithelial Cells Few /hpf (<5) Urine Bacteria Few /hpf (None Seen) H Urine Glucose Normal mg/dL (Normal) Labs and/or images reviewed: Labs reviewed by me, Image(s) reviewed by me Assessment/Plan Assessment/Plan An 84-year-old female patient; with multiple comorbidities; who presented with hematochezia. 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 This medical document was created using an electronic medical record system with computerized dictation system. Although this document has been carefully reviewed, there might still be some phonetic and typographical errors. These areas are purely typographical due to imperfections of the software programs, and do not reflect any compromise in the patient's medical care. Plan discussed with: Patient, Other (Nurse) My Orders Orders - RACHELLE JIMENEZ MD Procedure Category Date Status Time * Cardiology Consult CONS 03/03/25 Transmitted 13:00 Code Status CODE 03/03/25 Transmitted 15:37 Troponin-I Hs LAB 03/03/25 Transmitted 15:38 Troponin-I Hs LAB 03/03/25 Transmitted 16:38 Troponin-I Hs LAB 03/03/25 Transmitted 18:38 Hemoglobin & LAB 03/03/25 Verified Hematocrit 15:39 Date of Service: Mar 03, 2025 Billing Provider: RACHELLE JIMENEZ MD Common Visit Codes: [id number] INP/OBS CARE(HIGH) Secondary Visit Codes: [id number] CARE PLAN 30 MINUTES (20 minutes) RACHELLE JIMENEZ MD Mar 03, 2025 15:40
[2025-03-03 17:44] LABS: Hematocrit 42.4 % (36.0-46.0); Hemoglobin 14.2 g/dL (12.2-16.2)
[2025-03-04] VITALS (8 sets, daily range): BP systolic 105–159; BP diastolic 54–78; PULSE 48–67; RESP 16–18; TEMP 97.4–97.8; O2SAT 91–96
[2025-03-04 07:48] LABS: Hematocrit 42.5 % (36.0-46.0); Hemoglobin 14.1 g/dL (12.2-16.2); Mean Corpuscular Hemoglobin 32.4 pg (28.0-32.0); Mean Corpuscular Volume 97.3 fL (80.0-100.0); Nucleated Red Blood Cells % 0.0 %
--- NOTE | 2025-03-04 07:57 | DVHINCON2 ---
Date of service: Mar 04, 2025 Reason for Consultation Elevated troponin, History of paroxysmal atrial flutter/atrial fibrillation on anticoagulation History of Present Illness HPI The patient is an 84-year-old female known to our clinic who initially presented to the emergency department on 03/02/2025 with rectal bleeding, which began two days after initiating Eliquis 2.5 mg BID for the treatment of paroxysmal atrial fibrillation. She independently discontinued the medication upon onset of bleeding. Initial EKG showed a heart rate of 53 bpm, RI interval of 219 ms, and QTc of [address] or T wave changes. Laboratory evaluation revealed a hemoglobin of 14.5, potassium of 3.7, and elevated high-sensitivity troponins with an upward trend: 1332, 1424 1652, 1845, 1623, 1690. BNP was elevated at 685 . Chest X-ray demonstrated increased interstitial markings consistent with vascular congestion. Venous Doppler ultrasound of the lower extremities showed no evidence of DVT. During hospitalization, the patient reported an episode of chest pain and shortness of breath. She also shared that she was previously enrolled in hospice care, which concluded in November 2024. Her medical history includes a prior DVT in the right lower extremity, previously managed at [facility], where amputation was considered but ultimately declined by the patient. At present, she denies chest pain, dyspnea, or palpitations. 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 As a result, her family, particularly her [id number] Shefali, was involved in shared decision-making. After a detailed conversation, the family confirmed the patient's longstanding wishes to forgo any further invasive procedures or diagnostic evaluations at this time. Echocardiogram: (05/2023) revealed a technically limited study with suboptimal views. Findings were notable for moderate concentric left ventricular hy pertrophy and asymmetric septal hypertrophy (1.61.9 cm) consistent with hypertrophic cardiomyopathy, with mild systolic anterior motion (AMBER) of the mitral valve but no significant LVOT obstruction. Left ventricular systolic function was preserved (EF 6570%). The right ventricle was mildly enlarged with normal systolic function, and estimated RVSP was 58 mmHg, suggestive of moderate pulmonary hypertension. The left atrium was markedly dilated and the right atrium was moderately enlarged. Additional findings included minimal mitral valve prolapse with mild annular calcification, mild to moderate tricuspid regurgitation, and trace pulmonic regurgitation. The aortic and pulmonic valves were not well visualized. No pericardial effusion was noted Home Meds Active Scripts Amiodarone Hcl (Amiodarone Hcl) 200 Mg Tab, 200 MG PO BID for 30 Days, #60 TAB 2 Refills Prov:CRISTINE PACHECO MD 05/08/22 Metoprolol Tartrate (Lopressor) 25 Mg Tb, 12.5 MG PO BID, #60 TAB Prov:ABDULLAHI LUX MD 02/08/20 Verapamil Hcl (Calan Sr) 120 Mg Tab, 120 MG PO DAILY, #30 TAB Prov:ABDULLAHI LUX MD 02/08/20 Sucralfate (CARAFATE) 1 Gm Tab, 1 GM PO ACHS, #120 TAB Prov:ABDULLAHI LUX MD 02/08/20 Pantoprazole Sodium Sesquihydr (Protonix) 40 Mg Tab, 40 MG PO BID, #60 TAB Prov:ABDULLAHI LUX MD 02/08/20 Reported Medications Furosemide (Furosemide) 20 Mg Tab, 1 TAB PO DAILY 05/06/22 Atorvastatin Calcium (ATORVASTATIN CALCIUM) 40 Mg Tab, 1 TAB PO HS 05/06/22 Sildenafil Citrate (SILDENAFIL CITRATE) 20 Mg Tab, 1 TAB PO BID 05/06/22 Amlodipine Besylate (Amlodipine Besylate) 2.5 Mg Tab, 1 TAB PO BID 05/06/22 Levothyroxine Sodium (Levothyroxine Sodium) 75 Mcg Tab, 1 TAB PO DAILY 05/06/22 Atorvastatin Calcium (Lipitor) 10 Mg Tab, 1 TAB PO DAILY, #30 TAB 5 Refills 02/06/20 Past Medical History Patient Family History: Cardiovascular disease G8 MOTHER Diabetes mellitus G8 MOTHER FHx: epilepsy G8 MOTHER Hypertension G8 MOTHER Review of Systems Comments A 14-point review of systems is negative unless otherwise noted in HPI H&P Exam Vital Signs Vital Signs Date Time Temp Pulse Resp B/P (MAP) Pulse Ox O2 Delivery O2 Flow Rate FiO2 03/04/25 05:00 97.4 65 17 159/70 (99) 91 97.4 03/03/25 20:00 Room Air* 0 21 Comments Heart: S1 and S2 present. The patient is in sinus rhythm. Lungs: Scattered rhonchi. Abdomen: Benign. Extremities: Distal pulses palpable, 2+. No evidence for peripheral edema Labs/Xrays Labs Test 03/03/25 20:47 03/03/25 17:18 03/03/25 13:04 03/03/25 02:40 Range/Units Troponin I High Sensitivity 1690 *H </=34 ng/L Hemoglobin 14.2 12.2-16.2 g/dL Hematocrit 42.4 36.0-46.0 % White Blood Count 5.7 4.4-10.8 10^3/uL Red Blood Count 4.33 4.0-5.20 10^6/uL Mean Corpuscular Volume 95.7 80.0-100.0 fL Mean Corpuscular Hemoglobin 32.6 H 28.0-32.0 pg Mean Corpuscular Hemoglobin Concent 34.0 32.0-36.0 g/dL Red Cell Distribution Width 15.1 H 11.8-14.3 % Platelet Count 204 140-450 10^3/uL Mean Platelet Volume 8.6 6.9-10.8 fL Neutrophils (%) (Auto) 69.4 37.0-80.0 % Lymphocytes (%) (Auto) 17.3 10.0-50.0 % Monocytes (%) (Auto) 9.0 0.0-12.0 % Eosinophils (%) (Auto) 2.8 0.0-7.0 % Basophils (%) (Auto) 1.5 0.0-2.0 % Neutrophils # (Auto) 4.0 1.6-8.6 10 ^3/uL Lymphocytes # (Auto) 1.0 0.4-5.4 10 ^3/uL Monocytes # (Auto) 0.5 0-1.3 10 ^3/uL Eosinophils # (Auto) 0.2 0-0.8 10 ^3/uL Basophils # (Auto) 0.1 0-0.2 10 ^3/uL Nucleated Red Blood Cells 0.1 % Sodium Level 141 136-145 mmol/L Potassium Level 4.0 3.5-5.1 mmol/L Chloride Level 110 H 98-107 mmol/L Carbon Dioxide Level 23 20-31 mmol/L Anion Gap 8 5-15 Blood Urea Nitrogen 18 9-23 mg/dL Creatinine 0.82 0.550-1.02 mg/dL Glomerular Filtration Rate Calc 70 >90 mL/min BUN/Creatinine Ratio 22.0 H 10.0-20.0 Serum Glucose 96 74-106 mg/dL Calcium Level 9.0 8.7-10.4 mg/dL Total Bilirubin 0.9 0.2-1.0 mg/dL Aspartate Amino Transferase (AST) 21 13-40 U/L Alanine Aminotransferase (ALT) 14 7-40 U/L Alkaline Phosphatase 77 46-116 U/L Total Protein 6.5 5.7-8.2 g/dL Albumin 3.7 3.2-4.8 g/dL Test 03/02/25 10:38 03/02/25 10:07 Range/Units Urine Color Light-yellow Yellow Urine Clarity Clear Clear Urine pH 6.5 5.0-9.0 Urine Specific [place] 1.009 1.001-1.035 Urine Protein Negative Negative Urine Ketones Negative Negative Urine Blood 2+ H Negative /uL Urine Nitrite Negative Negative Urine Bilirubin Negative Negative Urine Urobilinogen Normal Negative mg/dL Urine Leukocyte Esterase Trace Negative /uL Urine RBC <1 0 - 4 /hpf Urine Microscopic WBC 4 0-5 /HPF Urine Squamous Epithelial Cells Few <5 /hpf Urine Bacteria Few H None Seen /hpf Urine Glucose Normal Normal mg/dL Stool Occult Blood Positive Negative Stool Occult Blood Sample #3 Negative Prothrombin Time 12.4 H 9.3-11.8 sec Prothrombin Time INR 1.19 H 0.9-1.15 Activated Partial Thromboplast Time 28.4 24.5-34.5 SEC B-Type Natriuretic Peptide 685.77 0-100 pg/mL Assessment/Plan Admitting Diagnosis: Non-ST elevation myocardial infarction (NSTEMI) Paroxysmal atrial fibrillation/flutter Peripheral artery disease Pulmonary hypertension Hematochezia Plan Patient presented with chest pain and shortness of breath during hospitalization. Electrocardiogram revealed no acute ST segment changes; however, serial high-sensitivity troponin levels were elevated and trended upward, peaking at 1845, raising concern for acute coronary syndrome and myocardial injury. Given the clinical presentation, I discussed with the patient the importance of further ischemic evaluation, including coronary angiography, to assess for obstructive coronary artery disease. Risks of ongoing ischemia, myocardial infarction, arrhythmia, and sudden cardiac were reviewed in detail. The patient, who has a history of paroxysmal atrial fibrillation and atrial flutter, was recently started on Eliquis 2.5 mg BID but developed significant hematochezia two days later. She independently discontinued the medication. Gastroenterology recommended colonoscopy to assess for the source of bleeding, and a Watchman device was discussed as a potential alternative to long-term anticoagulation. However, the patient has declined all further invasive testing and procedures at this time, including GI evaluation and cardiac catheterization. Her [id number], Shefali, confirmed by phone that the patient has previously expressed a strong preference to avoid invasive interventions. This discussion was held in the presence of her primary nurse, KESHAV Le. The patient was alert, oriented, and demonstrated full decision-making capacity. All risks, benefits, and alternatives were thoroughly reviewed. Eliquis will remain on hold for now. The patient was advised to continue antiarrhythmic therapy to maintain sinus rhythm and is encouraged to follow up on an outpatient basis for reevaluation of anticoagulation strategy and possible reconsideration of Watchman in the future. She was also advised to seek immediate medical attention should symptoms worsen or recur. Patient was info rmed that her decision to decline further evaluation and treatment may lead to serious complications, including . This has been documented thoroughly, and the patient assumes responsibility for the decision made against medical advice. Awaiting requested 2D echocardiogram Proceed with strict intakes, outputs, and daily weights Proceed with close rate and rhythm surveillance Proceed with close hemodynamic surveillance Proceed with optimized blood pressure control Transfuse to sustain HGB levels above 7.0 Sustain Magnesium level greater than 2.0 Sustain Potassium level greater than 4.0 Follow up renal function and electrolytes Continue Atorvastatin 10mg daily Continue Amiodarone 200mg twice daily Transition from metoprolol tartrate 12.5 mg twice daily to metoprolol succinate 25 mg daily due to bradycardia. Succinate formulation provides more stable heart rate control. Will monitor for tolerance and adjust as needed. Management in Telemetry Follow up GI recommendations Will proceed to follow from a cardiac perspective Further recommendations per clinical progression All available labs, EKGs, and images were personally reviewed Patient's status, findings, and plan of care was discussed and reviewed with supervising physician Dr. Cruz, who is in agreement with current plan of care. Plan of care discussed with and agreed upon by patient/family/Primary RN. Prognosis: Guarded Thank you for allowing me to participate in the care of this patient. Further recommendations will depend on clinical progression, hospitalist, and other consultants. Will continue to follow with Primary. If you have any questions, please do not hesitate to contact me. A total of 75 minutes was spent reviewing the patient record, examining the patient, making a diagnostic and therapeutic plan, discussing this plan with medical personnel, following up on diagnostic studies and following the patient for clinical stability excluding any and all procedures. At least 50% of this time was spent in direct, [id number] contact. From a cardiac standpoint, the patient remains stable with no acute concerns. There are no cardiovascular barriers to discharge at this time. Plan discussed with: Patient, Other (Daughter in-law Shefali and primary RN) HEAVENLY LOVE NP Mar 04, 2025 07:57
[2025-03-04 08:08] LABS: Alanine Aminotransferase 13 U/L (7-40); Alkaline Phosphatase 76 U/L (46-116); Anion Gap 11 (5-15); BUN/Creatinine Ratio 15.3 (10.0-20.0); Blood Urea Nitrogen 15 mg/dL (9-23); Calcium 8.7 mg/dL (8.7-10.4); Carbon Dioxide 24 mmol/L (20-31); Chloride 106 mmol/L (98-107); Glucose 88 mg/dL (74-106); Sodium 141 mmol/L (136-145); Total Protein 6.6 g/dL (5.7-8.2)
[2025-03-04 08:09] LABS: Albumin 3.8 g/dL (3.2-4.8); Bilirubin, Total 1.0 mg/dL (0.2-1.0)
[2025-03-04 08:14] LABS: Potassium 3.4 mmol/L (3.5-5.1)
--- NOTE | 2025-03-04 10:53 | PRN ---
Misceleneous Note Note Note March 04, 2025 Subjective: Patient has undergo an echocardiogram at time of visit. She denies any further episodes of bleeding Appreciate cardiology consultation Current Medications Medications (Trade) Dose Ordered Sig/Steve Route Start Time Stop Time Status Last Admin Dose Admin Amiodarone HCl (Cordarone Tablet) 200 mg BID PO 03/02/25 22:00 03/04/25 09:25 Furosemide (Lasix Tablet) 20 mg DAILY PO 03/03/25 10:00 03/04/25 09:26 Metoprolol Tartrate (Lopressor Tablet) 12.5 mg BID PO 03/02/25 22:00 03/02/25 21:36 Sildenafil Citrate (Revatio) 20 mg BID PO 03/02/25 22:00 03/04/25 09:26 Sucralfate (Carafate Tab) 1 gm ACHS PO 03/02/25 22:00 03/04/25 05:49 Amlodipine Besylate (Norvasc Tablet) 2.5 mg BID PO 03/02/25 22:00 03/04/25 09:26 Atorvastatin Calcium (Lipitor) 10 mg DAILY PO 03/03/25 10:00 03/04/25 09:27 Levothyroxine Sodium (Synthroid Tablet) 75 mcg QAM PO 03/03/25 07:00 03/04/25 05:50 Sodium Chloride (Saline Lock Ns) 10 ml Q8HR IV 03/02/25 22:00 03/04/25 05:54 Docusate Sodium (Colace Capsule) 100 mg BIDPRN PRN PO 03/02/25 19:00 Acetaminophen (Tylenol Tablet) 650 mg Q6HP PRN PO 03/02/25 19:00 Acetaminophen/ Hydrocodone Bitart ([place] 5/325MG Tab) 1 tab Q4HP PRN PO 03/02/25 19:00 Ondansetron HCl (Zofran) 4 mg Q4HP PRN IV 03/02/25 19:00 Pantoprazole Sodium (Protonix) 40 mg DAILY IV 03/02/25 20:00 03/04/25 10:17 Vital Signs Date Time Temp Pulse Resp B/P (MAP) Pulse Ox O2 Delivery O2 Flow Rate FiO2 03/04/25 09:27 50 152/78 03/04/25 05:00 97.4 17 91 97.4 03/03/25 20:00 Room Air* 0 21 Physical exam deferred Impression: 1. Atrial fibrillation/flutter 2. CHF, CAD 3. DVT was on Eliquis 4. Hematochezia Recommendations: 1. Continue cardiology workup 2. Supportive care 3. Hold off on colonoscopy at this time 4. Follow up with labs 5. I will follow LALITO VAUGHAN MD Mar 04, 2025 10:53
--- NOTE | 2025-03-04 15:17 | DVHPN2 ---
Subjective Claims no more rectal bleeding Reviewed: Care Plan, H&P, Labs, Medications, Previous Orders, Radiology, Other (Consultations) Changes from previous H/P or p: No Changes Objective Vitals Vital Signs Date Time Temp Pulse Resp B/P (MAP) Pulse Ox O2 Delivery O2 Flow Rate FiO2 03/04/25 13:00 97.7 52 16 129/59 (82) 94 97.7 03/04/25 08:00 Room Air* 0 21 Intake/Output Intake and Output 03/04/25 07:00 Intake Total 1382 ml Output Total 400 ml Balance 982 ml Intake Oral 1382 ml Output Urine Total 400 ml # Voids 6 # Bowel Movements 1 General Appearance: Alert, Oriented X3, Cooperative, No acute distress HEENT: Atraumatic Lungs: Clear to auscultation, Normal air movement Cardiovascular: Regular rate, Normal S1, Normal S2, No murmurs Abdomen: Normal bowel sounds, Soft, No tenderness Neuro: Normal speech, Cranial nerves 3-12 NL Psych/Mental Status: Mental status NL, Mood NL Medications Current Medications Medications Dose Ordered Sig/Steve Route Start Time Stop Time Status Last Admin Dose Admin Amiodarone HCl 200 mg BID PO 03/02/25 22:00 03/04/25 09:25 200 MG Furosemide 20 mg DAILY PO 03/03/25 10:00 03/04/25 09:26 20 MG Metoprolol Tartrate 12.5 mg BID PO 03/02/25 22:00 03/02/25 21:36 12.5 MG Sildenafil Citrate 20 mg BID PO 03/02/25 22:00 03/04/25 09:26 20 MG Sucralfate 1 gm ACHS PO 03/02/25 22:00 03/04/25 11:33 1 GM Amlodipine Besylate 2.5 mg BID PO 03/02/25 22:00 03/04/25 09:26 2.5 MG Atorvastatin Calcium 10 mg DAILY PO 03/03/25 10:00 03/04/25 09:27 10 MG Levothyroxine Sodium 75 mcg QAM PO 03/03/25 07:00 03/04/25 05:50 75 MCG Sodium Chloride 10 ml Q8HR IV 03/02/25 22:00 03/04/25 05:54 10 ML Docusate Sodium 100 mg BIDPRN PRN PO 03/02/25 19:00 Acetaminophen 650 mg Q6HP PRN PO 03/02/25 19:00 Acetaminophen/ Hydrocodone Bitart 1 tab Q4HP PRN PO 03/02/25 19:00 Ondansetron HCl 4 mg Q4HP PRN IV 03/02/25 19:00 Pantoprazole Sodium 40 mg DAILY IV 03/02/25 20:00 03/04/25 10:17 40 MG Laboratory Results Laboratory Tests 03/04/25 07:13 Chemistry Test 03/04/25 07:13 Albumin 3.8 g/dL (3.2-4.8) Calcium Level 8.7 mg/dL (8.7-10.4) Total Protein 6.6 g/dL (5.7-8.2) LFT Test 03/04/25 07:13 Alanine Aminotransferase (ALT) 13 U/L (7-40) Alkaline Phosphatase 76 U/L (46-116) Aspartate Amino Transferase (AST) 23 U/L (13-40) Total Bilirubin 1.0 mg/dL (0.2-1.0) Urinalysis Test 03/02/25 10:38 Urine Color Light-yellow (Yellow) Urine Clarity Clear (Clear) Urine pH 6.5 (5.0-9.0) Urine Specific [place] 1.009 (1.001-1.035) Urine Protein Negative (Negative) Urine Ketones Negative (Negative) Urine Blood 2+ /uL (Negative) H Urine Nitrite Negative (Negative) Urine Bilirubin Negative (Negative) Urine Urobilinogen Normal mg/dL (Negative) Urine Leukocyte Esterase Trace /uL (Negative) Urine RBC <1 /hpf (0 - 4) Urine Microscopic WBC 4 /HPF (0-5) Urine Squamous Epithelial Cells Few /hpf (<5) Urine Bacteria Few /hpf (None Seen) H Urine Glucose Normal mg/dL (Normal) Labs and/or images reviewed: Labs reviewed by me, Image(s) reviewed by me Assessment/Plan Assessment/Plan An 84-year-old female patient; with multiple comorbidities; who presented with hematochezia after starting apixaban. Hematochezia in the setting of apixaban use; stable hemoglobin level Paroxysmal atrial fibrillation/flutter Hypertensive heart disease with chronic diastolic heart failure Severe pulmonary hypertension NSTEMI with increasing troponin level; to rule out ACS History of DVT Hypothyroidism PAD Obesity Reviewed lab work and available imaging studies Continue home levothyroxine GI is following: Supportive measures as patient declined colonoscopy Evaluated by Cardiology; no finalized note yet; echocardiogram was done but no results yet Continue amiodarone Continue sildenafil Continue holding anticoagulation Telemetry Continue close monitoring for hemoglobin level Continue antihypertensive medications and adjust according to blood pressure readings Counseled the patient about the importance of adopting healthy lifestyle with diet and exercise in order to lose weight Continue monitoring Late Entry. This medical document was created using an electronic medical record system with computerized dictation system. Although this document has been carefully reviewed, there might still be some phonetic and typographical errors. These areas are purely typographical due to imperfections of the software programs, and do not reflect any compromise in the patient's medical care. Plan discussed with: Patient, Other (Nurse) My Orders Orders - RACHELLE JIMENEZ MD Procedure Category Date Status Time Code Status CODE 03/03/25 Transmitted 15:37 * Cardiology Consult CONS 03/04/25 Transmitted 03:56 Date of Service: Mar 04, 2025 Billing Provider: RACHELLE JIMENEZ MD Common Visit Codes: [id number] INP/OBS CARE(HIGH) RACHELLE JIMENEZ MD Mar 04, 2025 15:17
[2025-03-04] MEDS: POTASSIUM EFFERVESENT TAB 25 MEQ PO ONE (17:03)
--- NOTE | 2025-03-04 20:07 | DVHSR ---
APPROVED REPORT EXAM: Two-dimensional and M-mode echocardiogram with Doppler and color Doppler. Blood Pressure: 159/70 mmHg INDICATION Dizziness and Vertigo Elevated trops, Hx of AFIB RISK FACTORS Height: 60, Weight: 171 DIMENSIONS LVDd3.7 (3.8-5.7cm)LA (2D)5.2 (1.9-4.0cm)Aortic Root3.0 (2.0-3.7cm) LVDs1.9 (2.5-4.0cm)LA (MM) (1.9-4.0cm)Aortic Cusp Exc1.4 (1.5-2.0cm) EF (%) 80.0 (55-70%)Rt. Atrium4.4 (1.9-4.0cm)Asc. Aorta cm IVSd1.8 (0.7-1.1cm)RV (D) (1.8-2.4cm) PWd2.5 (0.7-1.1cm) Mitral Valve MitralMitral Stenosis E wave1.46m/sMV Mean GR.6mmHg A wave1.17m/sMV Peak GR.108mmHg E/A ratio1.22D MVAcm2 DECEL [id number] 1/2 [id number] IVRTmsDop MVA2.35cm2 Aortic Valve Aortic ValveAortic Stenosis LVOT Diameter1.4 (1.8-2.4cm)Doppler AVAcm2 Pulmonic Valve V20.92m/s Tricuspid Valve TR Velocity2.42m/s [id number] Conclusion Left ventricle: Severe concentric left ventricular hypertrophy was seen. Left ventricular systolic function was hyperdynamic. LVEF was 80%. Left Ventricular filling pressures were considered elevated . Dynamic obstruction of outflow tract is observed. Compatible with Hypertophic Obstructive Cardiomy opathy. Right ventricle is mildly dilated with reduced systolic function. Left atrium is markedly dilated. Right atrium is mildly dilated Aortic valve is trileflet with thickened leaflets. There was no Aortic Insufficiency. There was no Ao rtic valve stensosis. Severe posterior Mitral valve leaflet calcification is seen. Mild to Moderate Mitral stenosis is cons idered. Pressure half time was normal but mean pressure gradient across Mitral valve was 6 mmHg. Mode rate Mitral Regurgitation is considered. Mild Tricuspid Regurgitation is considered. There was no significant Pulmonary valve insufficiency. Trace pericardial effusion is present. IVC was normal sized with normal respiratory variation. Right Ventricular Systolic Pressure was considered at 36 mmHg.
[2025-03-05] VITALS (8 sets, daily range): BP systolic 102–162; BP diastolic 58–80; PULSE 49–74; RESP 15–18; TEMP 97.1–98.1; O2SAT 91–98
[2025-03-05 07:35] LABS: Hematocrit 41.9 % (36.0-46.0); Hemoglobin 14.3 g/dL (12.2-16.2); Mean Corpuscular Hemoglobin 32.6 pg (28.0-32.0); Mean Corpuscular Volume 95.5 fL (80.0-100.0); Nucleated Red Blood Cells % 0.1 %
[2025-03-05 07:56] LABS: Alanine Aminotransferase 12 U/L (7-40); Albumin 3.7 g/dL (3.2-4.8); Alkaline Phosphatase 73 U/L (46-116); Anion Gap 11 (5-15); BUN/Creatinine Ratio 15.4 (10.0-20.0); Bilirubin, Total 0.8 mg/dL (0.2-1.0); Blood Urea Nitrogen 16 mg/dL (9-23); Calcium 9.1 mg/dL (8.7-10.4); Carbon Dioxide 26 mmol/L (20-31); Chloride 104 mmol/L (98-107); Glucose 81 mg/dL (74-106); Magnesium 2.1 mg/dL (1.6-2.6); Potassium 3.8 mmol/L (3.5-5.1); Sodium 141 mmol/L (136-145); Total Protein 6.5 g/dL (5.7-8.2)
--- NOTE | 2025-03-05 10:04 | DVHPN2 ---
Progress Note - Dictate Date Seen: Mar 05, 2025 Medical Necessity Reason Pt with a Central, PICC or Fol: No vital signs Vital Sign Date Time Temp Pulse Resp B/P (MAP) Pulse Ox O2 Delivery O2 Flow Rate FiO2 03/05/25 05:00 98.1 50 18 157/65 (95) 91 98.1 03/04/25 20:00 Room Air* 0 21 Total Intake and Output 03/04/25 03/04/25 03/05/25 15:00 23:00 07:00 Intake Total 550 ml 640 ml Balance 550 ml 640 ml medications Current Medications Medications Dose Ordered Sig/Steve Route Start Time Stop Time Status Last Admin Dose Admin Furosemide 20 mg DAILY PO 03/03/25 10:00 03/04/25 09:26 20 MG Metoprolol Tartrate 12.5 mg BID PO 03/02/25 22:00 03/02/25 21:36 12.5 MG Sildenafil Citrate 20 mg BID PO 03/02/25 22:00 03/04/25 23:01 20 MG Sucralfate 1 gm ACHS PO 03/02/25 22:00 03/05/25 05:20 1 GM Amlodipine Besylate 2.5 mg BID PO 03/02/25 22:00 03/04/25 21:19 2.5 MG Atorvastatin Calcium 10 mg DAILY PO 03/03/25 10:00 03/04/25 09:27 10 MG Levothyroxine Sodium 75 mcg QAM PO 03/03/25 07:00 03/05/25 05:20 75 MCG Sodium Chloride 10 ml Q8HR IV 03/02/25 22:00 03/05/25 05:26 10 ML Docusate Sodium 100 mg BIDPRN PRN PO 03/02/25 19:00 Acetaminophen 650 mg Q6HP PRN PO 03/02/25 19:00 Acetaminophen/ Hydrocodone Bitart 1 tab Q4HP PRN PO 03/02/25 19:00 Ondansetron HCl 4 mg Q4HP PRN IV 03/02/25 19:00 Pantoprazole Sodium 40 mg DAILY IV 03/02/25 20:00 03/04/25 10:17 40 MG laboratory and microbiology Laboratory Tests 03/05/25 06:52 Test 03/05/25 06:52 Range/Units Serum Glucose 81 74-106 mg/dL Assessment/Plan The patient is an 84-year-old female known to our clinic who initially presented to the emergency department on 03/02/2025 with rectal bleeding, which began two days after initiating Eliquis 2.5 mg BID for the treatment of paroxysmal atrial fibrillation. She independently discontinued the medication upon onset of bleeding. Initial EKG showed a heart rate of 53 bpm, MA interval of 219 ms, and QTc of [address] or T wave changes. Laboratory evaluation revealed a hemoglobin of 14.5, potassium of 3.7, and elevated high-sensitivity troponins with an upward trend: 1332, 1424 1652, 1845, 1623, 1690. BNP was elevated at 685. Chest X-ray demonstrated increased interstitial markings consistent with vascular congestion. Venous Doppler ultrasound of the lower extremities showed no evidence of DVT. During hospitalization, the patient reported an episode of chest pain and shortness of breath. She also shared that she was previously enrolled in hospice care, which concluded in November 2024. Her medical history includes a prior DVT in the right lower extremity, previously managed at [facility], where amputation was considered but ultimately declined by the patient. After a detailed conversation, patient confirmed the patient's longstanding wishes to forgo any further invasive procedures or diagnostic evaluations at this time. Past medical history includes hyperlipidemia, CKD, hypothyroidism, previous history of tear in aorta, atrial fibrillation/flutter, paroxysmal AFib, hypertrophic obstructive cardiomyopathy, diastolic heart failure, pulmonary hypertension, severe peripheral artery disease, GERD, anemia, uterus fibroid, diverticulosis, history of clot in the legs, possible significant peripheral artery disease and history of being against any invasive management. Was on hospice previously. She was recently in the office on February 27, 2025 after repeated missing appointments. At that point she was on hospice and did come for followups. On February 27, 2025 the patient agreed to try Eliquis to prevent distal embolization secondary to paroxysmal AFib. Echocardiogram: (05/2023) revealed a technically limited study with suboptimal views. Findings were notable for moderate concentric left ventricular hypertrophy and asymmetric septal hypertrophy (1.61.9 cm) consistent with hypertrophic cardiomyopathy, with mild systolic anterior motion (AMBER) of the mitral valve but no significant LVOT obstruction. Left ventricular systolic function was preserved (EF 6570%). The right ventricle was mildly enlarged with normal systolic function, and estimated RVSP was 58 mmHg, suggestive of moderate pulmonary hypertension. The left atrium was markedly dilated and the right atrium was moderately enlarged. Additional findings included minimal mitral valve prolapse with mild annular calcification, mild to moderate tricuspid regurgitation, and trace pulmonic regurgitation. The aortic and pulmonic valves were not well visualized. No pericardial effusion was noted Echocardiogram revealed: Left ventricle: Severe concentric left ventricular hypertrophy was seen. Left ventricular systolic function was hyperdynamic. LVEF was 80%. Left Ventricular filling pressures were considered elevated. Dynamic obstruction of outflow tract is observed. Compatible with Hypertophic Obstructive Cardiomyopathy. Right ventricle is mildly dilated with reduced systolic function. Left atrium is markedly dilated. Right atrium is mildly dilated. Aortic valve is trileflet with thickened leaflets. There was no Aortic Insufficiency. There was no Aortic valve stensosis. Severe posterior Mitral valve leaflet calcification is seen. Mild to Moderate Mitral stenosis is considered. Pressure half time was normal but mean pressure gradient across Mitral valve was 6 mmHg. Moderate Mitral Regurgitation is considered. Mild Tricuspid Regurgitation is considered. There was no significant Pulmonary valve insufficiency. Trace pericardial effusion is present. IVC was normal sized with normal respiratory variation. Right Ventricular Systolic Pressure was considered at 36 mmHg. Telemetry reveals sinus rhythm and occasions of sinus pause during sleep Presented with GI bleeding after starting Eliquis which has been held. Denies chest pains/shortness of breath. Is found to have increased troponin which has remained relatively flat does have history of hypertrophic cardiomyopathy and echocardiogram reveals the same. She is refusing any invasive evaluation and management. She is also found to have occasions of some sinus pause during her sleep which may reflect some component of obstructive sleep apnea. Non-ST elevation myocardial infarction (NSTEMI) Paroxysmal atrial fibrillation/flutter Hypertrophic cardiomyopathy Sinus pause during sleep, rule out obstructive sleep apnea Peripheral artery disease Pulmonary hypertension Hematochezia Plan Patient presented with chest pain and shortness of breath during hospitalization. Electrocardiogram revealed no acute ST segment changes; however, serial high-sensitivity troponin levels were elevated and trended upward, peaking at 1845, raising concern for acute coronary syndrome and myocardial injury. Given the clinical presentation, we discussed with the patient the importance of further ischemic evaluation, including coronary angiography, to assess for obstructive coronary artery disease. Risks of ongoing ischemia, myocardial infarction, arrhythmia, and sudden cardiac were reviewed in detail. The patient, who has a history of paroxysmal atrial fibrillation and atrial flutter, was recently started on Eliquis 2.5 mg BID but developed significant hematochezia two days later. She independently discontinued the medication. Gastroenterology recommended colonoscopy to assess for the source of bleeding, and a Watchman device was discussed as a potential alternative to long-term anticoagulation. She is refusing any invasive evaluation / management. Bobby will remain on hold for now. She is encouraged to follow up on an outpatient basis for reevaluation of anticoagulation strategy and possible reconsideration of Watchman in the future. She was also advised to seek immediate medical attention should symptoms worsen or recur. Patient was informed that her decision to decline further evaluation and treatment may lead to serious complications, including . This has been documented thoroughly, and the patient assumes responsibility for the decision made against medical advice. She is refusing A/C, watchman and even possibility of pacemaker for now. Recognizing hypertrophic obstructive cardiomyopathy, suggestion is to start disopyramide and stop amiodarone for now Disopyramide: 100 mg p.o. b.i.d. Hold amiodarone Hold/stop metoprolol No anticoagulation (patient understands the risks) Proceed with strict intakes, outputs, and daily weights Proceed with close rate and rhythm surveillance Proceed with close hemodynamic surveillance Proceed with optimized blood pressure control Transfuse to sustain HGB levels above 7.0 Sustain Magnesium level greater than 2.0 Sustain Potassium level greater than 4.0 Follow up renal function and electrolytes Continue Atorvastatin 10mg daily Management in Telemetry Follow up GI recommendations Will proceed to follow from a cardiac perspective Further recommendations per clinical progression All available labs, EKGs, and images were personally reviewed Plan of care discussed with and agreed upon by patient/family/Primary RN. Prognosis: Guarded Thank you for allowing me to participate in the care of this patient. Further recommendations will depend on clinical progression, hospitalist, and other consultants. Will continue to follow with Primary. If you have any questions, please do not hesitate to contact me. A total of 55 minutes was spent reviewing the patient record, examining the patient, making a diagnostic and therapeutic plan, discussing this plan with medical personnel, following up on diagnostic studies and following the patient for clinical stability excluding any and all procedures. At least 50% of this time was spent in direct, [id number] contact. From a cardiac standpoint, the patient remains stable with no acute concerns. There are no cardiovascular barriers to discharge at this time. Plan discussed with: Patient, Other (nurse) JEFF JOE MD Mar 05, 2025 10:04
--- NOTE | 2025-03-05 14:30 | DVHPN2 ---
Progress Note Date Seen: Mar 05, 2025 Medical Necessity Reason Pt with a Central, PICC or Fol: No Subjective Patient reports: No new complaints Review of Systems: HEENT:Normal, CVS:Normal, RESPIRATORY:Normal, GI:Normal, :Normal, MSK:Normal, NEURO:Normal Objective vital signs Vital Sign Date Time Temp Pulse Resp B/P (MAP) Pulse Ox O2 Delivery O2 Flow Rate FiO2 03/05/25 11:08 142/74 03/05/25 10:00 49 03/05/25 09:00 97.1 15 98 97.1 03/05/25 08:00 Room Air* 0 21 Total Intake and Output 03/04/25 03/04/25 03/05/25 15:00 23:00 07:00 Intake Total 550 ml 640 ml Balance 550 ml 640 ml medications Current Medications Medications Dose Ordered Sig/Steve Route Start Time Stop Time Status Last Admin Dose Admin Furosemide 20 mg DAILY PO 03/03/25 10:00 03/05/25 11:06 20 MG Metoprolol Tartrate 12.5 mg BID PO 03/02/25 22:00 03/02/25 21:36 12.5 MG Sildenafil Citrate 20 mg BID PO 03/02/25 22:00 03/05/25 11:06 20 MG Sucralfate 1 gm ACHS PO 03/02/25 22:00 03/05/25 11:56 1 GM Amlodipine Besylate 2.5 mg BID PO 03/02/25 22:00 03/05/25 11:08 2.5 MG Atorvastatin Calcium 10 mg DAILY PO 03/03/25 10:00 03/05/25 11:04 10 MG Levothyroxine Sodium 75 mcg QAM PO 03/03/25 07:00 03/05/25 05:20 75 MCG Sodium Chloride 10 ml Q8HR IV 03/02/25 22:00 03/05/25 05:26 10 ML Docusate Sodium 100 mg BIDPRN PRN PO 03/02/25 19:00 Acetaminophen 650 mg Q6HP PRN PO 03/02/25 19:00 Acetaminophen/ Hydrocodone Bitart 1 tab Q4HP PRN PO 03/02/25 19:00 Ondansetron HCl 4 mg Q4HP PRN IV 03/02/25 19:00 Pantoprazole Sodium 40 mg DAILY IV 03/02/25 20:00 03/05/25 11:04 40 MG Examination: GENERAL:Normal, HEENT:Normal, NECK:Normal, LUNGS:Normal, CVS:Normal, ABDOMEN:Normal, MSK:Normal, SKIN:Normal, NEURO:Normal, :Normal laboratory and microbiology Laboratory Tests 03/05/25 06:52 Test 03/05/25 06:52 Range/Units Serum Glucose 81 74-106 mg/dL Problem List/Assessment/Plan Problem List/Assessment/Plan #1 gi bleed: off eliquis #2 a fib/flutter #3 obesity #4 htn #5 pvd #6 h/o dvt #7 hypothyroidism #8 hypertrophic cardiomyopathy/pulm htn #9 chronic diastolic heart failure #10 nstemi: per cardiology advance care planning- full code- time spent 18 mins Plan discussed with: Patient Date of Service: Mar 05, 2025 Billing Provider: CRISTINE PACHECO MD Common Visit Codes: [id number] INP/OBS CARE(HIGH) Secondary Visit Codes: [id number] CARE PLAN 30 MINUTES CRISTINE PACHECO MD Mar 05, 2025 14:30
[2025-03-06 01:00] VITALS: BP 122/68; PULSE 59; RESP 18; TEMP 97.5; O2SAT 93
[2025-03-06 05:00] VITALS: BP 125/64; PULSE 52; RESP 17; TEMP 97.6; O2SAT 92
[2025-03-06 07:12] LABS: Hematocrit 40.9 % (36.0-46.0); Hemoglobin 14.3 g/dL (12.2-16.2); Mean Corpuscular Hemoglobin 33.5 pg (28.0-32.0); Mean Corpuscular Volume 95.7 fL (80.0-100.0); Nucleated Red Blood Cells % 0.1 %
--- NOTE | 2025-03-06 07:13 | DVHPN2 ---
Progress Note - Dictate Date Seen: Mar 06, 2025 Medical Necessity Reason Pt with a Central, PICC or Fol: No vital signs Vital Sign Date Time Temp Pulse Resp B/P (MAP) Pulse Ox O2 Delivery O2 Flow Rate FiO2 03/06/25 05:00 97.6 52 17 125/64 (84) 92 97.6 03/05/25 20:00 Room Air* 0 21 Total Intake and Output 03/05/25 03/05/25 03/06/25 15:00 23:00 07:00 Intake Total 850 ml 800 ml Balance 850 ml 800 ml medications Current Medications Medications Dose Ordered Sig/Steve Route Start Time Stop Time Status Last Admin Dose Admin Furosemide 20 mg DAILY PO 03/03/25 10:00 03/05/25 11:06 20 MG Metoprolol Tartrate 12.5 mg BID PO 03/02/25 22:00 03/02/25 21:36 12.5 MG Sildenafil Citrate 20 mg BID PO 03/02/25 22:00 03/05/25 21:28 20 MG Sucralfate 1 gm ACHS PO 03/02/25 22:00 03/06/25 06:07 1 GM Amlodipine Besylate 2.5 mg BID PO 03/02/25 22:00 03/05/25 11:08 2.5 MG Atorvastatin Calcium 10 mg DAILY PO 03/03/25 10:00 03/05/25 11:04 10 MG Levothyroxine Sodium 75 mcg QAM PO 03/03/25 07:00 03/06/25 06:07 75 MCG Sodium Chloride 10 ml Q8HR IV 03/02/25 22:00 03/06/25 06:07 10 ML Docusate Sodium 100 mg BIDPRN PRN PO 03/02/25 19:00 Acetaminophen 650 mg Q6HP PRN PO 03/02/25 19:00 Acetaminophen/ Hydrocodone Bitart 1 tab Q4HP PRN PO 03/02/25 19:00 Ondansetron HCl 4 mg Q4HP PRN IV 03/02/25 19:00 Pantoprazole Sodium 40 mg DAILY IV 03/02/25 20:00 03/05/25 11:04 40 MG laboratory and microbiology Test 03/06/25 05:59 Range/Units Serum Glucose Pending Assessment/Plan The patient is an 84-year-old female known to our clinic who initially presented to the emergency department on 03/02/2025 with rectal bleeding, which began two days after initiating Eliquis 2.5 mg BID for the treatment of paroxysmal atrial fibrillation. She independently discontinued the medication upon onset of bleeding. Initial EKG showed a heart rate of 53 bpm, MO interval of 219 ms, and QTc of [address] or T wave changes. Laboratory evaluation revealed a hemoglobin of 14.5, potassium of 3.7, and elevated high-sensitivity troponins with an upward trend: 1332, 1424 1652, 1845, 1623, 1690. BNP was elevated at 685. Chest X-ray demonstrated increased interstitial markings consistent with vascular congestion. Venous Doppler ultrasound of the lower extremities showed no evidence of DVT. During hospitalization, the patient reported an episode of chest pain and shortness of breath. She also shared that she was previously enrolled in hospice care, which concluded in November 2024. Her medical history includes a prior DVT in the right lower extremity, previously managed at [facility], where amputation was considered but ultimately declined by the patient. After a detailed conversation, patient confirmed the patient's longstanding wishes to forgo any further invasive procedures or diagnostic evaluations at this time. Past medical history includes hyperlipidemia, CKD, hypothyroidism, previous history of tear in aorta, atrial fibrillation/flutter, paroxysmal AFib, hypertrophic obstructive cardiomyopathy, diastolic heart failure, pulmonary hypertension, severe peripheral artery disease, GERD, anemia, uterus fibroid, diverticulosis, history of clot in the legs, possible significant peripheral artery disease and history of being against any invasive management. Was on hospice previously. She was recently in the office on February 27, 2025 after repeated missing appointments. At that point she was on hospice and did come for followups. On February 27, 2025 the patient agreed to try Eliquis to prevent distal embolization secondary to paroxysmal AFib. Echocardiogram: (05/2023) revealed a technically limited study with suboptimal views. Findings were notable for moderate concentric left ventricular hypertrophy and asymmetric septal hypertrophy (1.61.9 cm) consistent with hype rtrophic cardiomyopathy, with mild systolic anterior motion (AMBER) of the mitral valve but no significant LVOT obstruction. Left ventricular systolic function was preserved (EF 6570%). The right ventricle was mildly enlarged with normal systolic function, and estimated RVSP was 58 mmHg, suggestive of moderate pulmonary hypertension. The left atrium was markedly dilated and the right atrium was moderately enlarged. Additional findings included minimal mitral valve prolapse with mild annular calcification, mild to moderate tricuspid regurgitation, and trace pulmonic regurgitation. The aortic and pulmonic valves were not well visualized. No pericardial effusion was noted Echocardiogram revealed: Left ventricle: Severe concentric left ventricular hyp ertrophy was seen. Left ventricular systolic function was hyperdynamic. LVEF was 80%. Left Ventricular filling pressures were considered elevated. Dynamic obstruction of outflow tract is observed. Compatible with Hypertophic Obstructive Cardiomyopathy. Right ventricle is mildly dilated with reduced systolic function. Left atrium is markedly dilated. Right atrium is mildly dilated. Aortic valve is trileflet with thickened leaflets. There was no Aortic Insufficiency. There was no Aortic valve stensosis. Severe posterior Mitral valve leaflet calcification is seen. Mild to Moderate Mitral stenosis is considered. Pressure half time was normal but mean pressure gradient across Mitral valve was 6 mmHg. Moderate Mitral Regurgitation is considered. Mild Tricuspid Regurgitation is considered. There was no significant Pulmonary valve insufficiency. Trace pericardial effusion is present. IVC was normal sized with normal respiratory variation. Right Ventricular Systolic Pressure was considered at 36 mmHg. Telemetry reveals sinus rhythm and occasions of sinus pause during sleep Presented with GI bleeding after starting Eliquis which has been held. Denies chest pains/shortness of breath. Is found to have increased troponin which has remained relatively flat does have history of hypertrophic cardiomyopathy and echocardiogram reveals the same. She is refusing any invasive evaluation and management. She is also found to have occasions of some sinus pause during her sleep which may reflect some component of obstructive sleep apnea. Non-ST elevation myocardial infarction (NSTEMI) Paroxysmal atrial fibrillation/flutter Hypertrophic cardiomyopathy Sinus pause during sleep, rule out obstructive sleep apnea Peripheral artery disease Pulmonary hypertension Hematochezia Plan Patient presented with chest pain and shortness of breath during hospitalization. Electrocardiogram revealed no acute ST segment changes; however, serial high-sensitivity troponin levels were elevated and trended upward, peaking at 1845, raising concern for acute coronary syndrome and myocardial injury. Given the clinical presentation, we discussed with the patient the importance of further ischemic evaluation, including coronary angiography, to assess for obstructive coronary artery disease. Risks of ongoing ischemia, myocardial infarction, arrhythmia, and sudden cardiac were rev iewed in detail. The patient, who has a history of paroxysmal atrial fibrillation and atrial flutter, was recently started on Eliquis 2.5 mg BID but developed significant hematochezia two days later. She independently discontinued the medication. Gastroenterology recommended colonoscopy to assess for the source of bleeding, and a Watchman device was discussed as a potential alternative to long-term anticoagulation. She is refusing any invasive evaluation / management. Bobby will remain on hold for now. She is encouraged to follow up on an outpatient basis for reevaluation of anticoagulation strategy and possible reconsideration of Watchman in the future. She was also advised to seek immediate medical attention should symptoms worsen or recur. Patient was informed that her decision to decline further evaluation and treatment may lead to serious complications, including . This has been documented thoroughly, and the patient assumes responsibility for the decision made against medical advice. She is refusing A/C, watchman and even possibility of pacemaker for now. Recognizing hypertrophic obstructive cardiomyopathy, suggestion is to start disopyramide and stop amiodarone for now Disopyramide: 100 mg p.o. b.i.d. Hold amiodarone Hold/stop metoprolol No anticoagulation (patient understands the risks) Cardiac plasencia, can be followed as outpatient Proceed with strict intakes, outputs, and daily weights Proceed with close rate and rhythm surveillance Proceed with close hemodynamic surveillance Proceed with optimized blood pressure control Transfuse to sustain HGB levels above 7.0 Sustain Magnesium level greater than 2.0 Sustain Potassium level greater than 4.0 Follow up renal function and electrolytes Continue Atorvastatin 10mg daily Management in Telemetry Follow up GI recommendations Will proceed to follow from a cardiac perspective Further recommendations per clinical progression All available labs, EKGs, and images were personally reviewed Plan of care discussed with and agreed upon by patient/family/Primary RN. Prognosis: Guarded Thank you for allowing me to participate in the care of this patient. Further recommendations will depend on clinical progression, hospitalist, and other consultants. Will continue to follow with Primary. If you have any questions, please do not hesitate to contact me. A total of 55 minutes was spent reviewing the patient record, examining the patient, making a diagnostic and therapeutic plan, discussing this plan with medical personnel, following up on diagnostic studies and following the patient for clinical stability excluding any and all procedures. At least 50% of this time was spent in direct, [id number] contact. From a cardiac standpoint, the patient remains stable with no acute concerns. There are no cardiovascular barriers to discharge at this time. Plan discussed with: Patient, Other (nurse) JEFF JOE MD Mar 06, 2025 07:13
[2025-03-06 07:30] LABS: Alanine Aminotransferase 10 U/L (7-40); Alkaline Phosphatase 70 U/L (46-116); Anion Gap 10 (5-15); BUN/Creatinine Ratio 20.7 (10.0-20.0); Calcium 9.0 mg/dL (8.7-10.4); Carbon Dioxide 25 mmol/L (20-31); Chloride 104 mmol/L (98-107); Glucose 80 mg/dL (74-106); Potassium 3.8 mmol/L (3.5-5.1); Sodium 139 mmol/L (136-145); Total Protein 6.4 g/dL (5.7-8.2)
[2025-03-06 07:31] LABS: Albumin 3.7 g/dL (3.2-4.8); Bilirubin, Total 0.6 mg/dL (0.2-1.0)
--- NOTE | 2025-03-06 07:32 | ECG ---
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
[2025-03-06 07:37] LABS: Blood Urea Nitrogen 23 mg/dL (9-23)
[2025-03-06 08:00] VITALS: PULSE 50; PULSE 72; RESP 16; O2SAT 98
[2025-03-06 09:00] VITALS: BP 131/72; PULSE 55; RESP 18; TEMP 98.3; O2SAT 92
--- NOTE | 2025-03-06 11:28 | DVHDS2 ---
Discharge Summary Date of Admission Mar 02, 2025 at 18:56 Date of Discharge: Mar 06, 2025 Labs/Diagnostic Data: Laboratory Results Test 03/06/25 05:59 03/05/25 06:52 03/03/25 20:47 03/02/25 10:38 White Blood Count 5.2 10^3/uL (4.4-10.8) Red Blood Count 4.27 10^6/uL (4.0-5.20) Hemoglobin 14.3 g/dL (12.2-16.2) Hematocrit 40.9 % (36.0-46.0) Mean Corpuscular Volume 95.7 fL (80.0-100.0) Mean Corpuscular Hemoglobin 33.5 pg (28.0-32.0) Mean Corpuscular Hemoglobin Concent 35.1 g/dL (32.0-36.0) Red Cell Distribution Width 14.9 % (11.8-14.3) Platelet Count 189 10^3/uL (140-450) Mean Platelet Volume 8.7 fL (6.9-10.8) Neutrophils (%) (Auto) 65.2 % (37.0-80.0) Lymphocytes (%) (Auto) 19.0 % (10.0-50.0) Monocytes (%) (Auto) 9.5 % (0.0-12.0) Eosinophils (%) (Auto) 5.2 % (0.0-7.0) Basophils (%) (Auto) 1.1 % (0.0-2.0) Neutrophils # (Auto) 3.4 10 ^3/uL (1.6-8.6) Lymphocytes # (Auto) 1.0 10 ^3/uL (0.4-5.4) Monocytes # (Auto) 0.5 10 ^3/uL (0-1.3) Eosinophils # (Auto) 0.3 10 ^3/uL (0-0.8) Basophils # (Auto) 0.1 10 ^3/uL (0-0.2) Nucleated Red Blood Cells 0.1 % Sodium Level 139 mmol/L (136-145) Potassium Level 3.8 mmol/L (3.5-5.1) Chloride Level 104 mmol/L (98-107) Carbon Dioxide Level 25 mmol/L (20-31) Anion Gap 10 (5-15) Blood Urea Nitrogen 23 mg/dL (9-23) Creatinine 1.11 mg/dL (0.550-1.02) Glomerular Filtration Rate Calc 48 mL/min (>90) BUN/Creatinine Ratio 20.7 (10.0-20.0) Serum Glucose 80 mg/dL (74-106) Calcium Level 9.0 mg/dL (8.7-10.4) Total Bilirubin 0.6 mg/dL (0.2-1.0) Aspartate Amino Transferase (AST) 24 U/L (13-40) Alanine Aminotransferase (ALT) 10 U/L (7-40) Alkaline Phosphatase 70 U/L (46-116) Total Protein 6.4 g/dL (5.7-8.2) Albumin 3.7 g/dL (3.2-4.8) Thyroid Stimulating Hormone (TSH) 48.63 uIU/mL (0.55-4.78) Magnesium Level 2.1 mg/dL (1.6-2.6) Troponin I High Sensitivity 1690 ng/L (</=34) Urine Color Light-yellow (Yellow) Urine Clarity Clear (Clear) Urine pH 6.5 (5.0-9.0) Urine Specific [place] 1.009 (1.001-1.035) Urine Protein Negative (Negative) Urine Ketones Negative (Negative) Urine Blood 2+ /uL (Negative) Urine Nitrite Negative (Negative) Urine Bilirubin Negative (Negative) Urine Urobilinogen Normal mg/dL (Negative) Urine Leukocyte Esterase Trace /uL (Negative) Urine RBC <1 /hpf (0 - 4) Urine Microscopic WBC 4 /HPF (0-5) Urine Squamous Epithelial Cells Few /hpf (<5) Urine Bacteria Few /hpf (None Seen) Urine Glucose Normal mg/dL (Normal) Stool Occult Blood Positive (Negative) Stool Occult Blood Sample #3 (Negative) Test 03/02/25 10:07 Prothrombin Time 12.4 sec (9.3-11.8) Prothrombin Time INR 1.19 (0.9-1.15) Activated Partial Thromboplast Time 28.4 SEC (24.5-34.5) B-Type Natriuretic Peptide 685.77 pg/mL (0-100) Other Laboratory Tests 03/06/25 05:59 Brief Hx & Hospital Course: see dictated note Condition at Discharge: Fair Final Diagnosis/Problems List gi bleed Discharge Disposition: Home Discharge Instruct/Medications Diet: Cardiac 2g Na,low cholest Activity: No Restrictions, As Tolerated Follow Up/Referral: fu with pcp in 1 wk Medications: resume home meds except change in levothyroxine dose avoid nsaids, eliquis script to pharmacy Scheduled Amiodarone Hcl (Amiodarone Hcl), 200 MG PO BID Amlodipine Besylate (Amlodipine Besylate), 1 TAB PO BID, (Reported) Atorvastatin Calcium (Lipitor), 1 TAB PO DAILY, (Reported) Atorvastatin Calcium (Atorvastatin Calcium), 1 TAB PO HS, (Reported) Furosemide (Furosemide), 1 TAB PO DAILY, (Reported) Levothyroxine Sodium (Levothyroxine Sodium), 1 TAB PO DAILY, (Reported) Metoprolol Tartrate (Lopressor), 12.5 MG PO BID Pantoprazole Sodium Sesquihydr (Protonix), 40 MG PO BID Sildenafil Citrate (Sildenafil Citrate), 1 TAB PO BID, (Reported) Sucralfate (Carafate), 1 GM PO ACHS Verapamil Hcl (Calan Sr), 120 MG PO DAILY Discharge Statement: "Patient was advised to return to the ER or call 911 if any headaches, dizziness, shortness of breath, chest pain, abdominal pain, bleeding, fevers, or worsening of medical condition. Patient was counseled about treatment plan, medications, possible side effects, patientverbalized understanding. All questions were answered to the best of my ability. This discharge took greater then 30 minutes in planning, reviewing documentation, counseling the patient, and discussing with other team members." ASSESSMENT ASSESSMENT Assessment gi bleed Date of Service: Mar 06, 2025 Billing Provider: CRISTINE PACHECO MD Common Visit Codes: 28797-XOL/OBS DISCH DAY >30min CRISTINE PACHECO MD Mar 06, 2025 11:28
[2025-03-06] MEDS ORDERED: LEVO100C3 PO (11:29)
[2025-03-06] MEDS ORDERED: DISO100C4 PO (11:33)
--- NOTE | 2025-03-06 11:38 | DVHDS ---
DATE OF DISCHARGE: 03/06/2025 HISTORY OF PRESENT ILLNESS: The patient is an 84-year-old lady who is admitted with history of rectal bleeding and has previous history of DVT, AFib, CHF, CAD, peripheral vascular disease, hypothyroidism and hypertension. HOSPITAL COURSE: The patient was seen in Cardiology consult by Dr. House. The patient's troponin levels were elevated. BNP was 685. Chest x-ray showed evidence of likely pulmonary venous congestion. The patient's echocardiogram showed hypertrophic cardiomyopathy with ejection fraction of 80%. The patient's hemoglobin remains stable and she does not wish any further workup including colonoscopy. Her stool was positive for occult blood. The patient will now be discharged home to resume her home medications except for her Eliquis and nonsteroidals. Her levothyroxine dose will also be increased from 75 to 100 mcg daily since her TSH was elevated at 48. FINAL DIAGNOSES: * GI bleeding, the patient refused further workup. * Atrial fibrillation/flutter. * Obesity. * Hypertension. * Peripheral vascular disease. * History of DVT. * Uncontrolled hypothyroidism. * Hypertrophic cardiomyopathy/pulmonary hypertension. * Likely [id number] diastolic heart failure. * Non-STEMI. Time spent in discharge planning and review of plan with the patient, consultant teacher and nursing was 39 minutes. MD CHRISSY Berger/TIMUR TID: [id number] RECEIPT: [id number]
[2025-03-06 12:25] VITALS: BP 131/72; PULSE 71
--- NOTE | 2025-03-06 14:45 | DVHPN2 ---
Progress Note - Dictate Date Seen: Mar 06, 2025 (Late entryTime of visit 11:00 a.m.) Medical Necessity Reason Pt with a Central, PICC or Fol: No Subjective No new complaints, no active GI bleeding Hemoglobin stable at 14 vital signs Vital Sign Date Time Temp Pulse Resp B/P (MAP) Pulse Ox O2 Delivery O2 Flow Rate FiO2 03/06/25 12:25 71 03/06/25 10:51 131/72 03/06/25 09:00 98.3 18 92 98.3 03/06/25 08:00 Room Air* 0 21 Total Intake and Output 03/05/25 03/05/25 03/06/25 15:00 23:00 07:00 Intake Total 850 ml 800 ml Balance 850 ml 800 ml objective General Appearance: Alert, Oriented X3, Cooperative, No acute distress HEENT: Atraumatic Lungs: Clear to auscultation, Normal air movement Cardiovascular: Regular rate, Normal S1, Normal S2 Abdomen: Normal bowel sounds, Soft, No tenderness Neuro: Normal speech, Cranial nerves 3-12 NL Psych/Mental Status: Mental status NL, Mood NL laboratory and microbiology Laboratory Tests 03/06/25 05:59 Test 03/06/25 05:59 Range/Units Serum Glucose 80 74-106 mg/dL Problems(with codes): (1) Non-STEMI (non-ST elevated myocardial infarction) (2) CHF (congestive heart failure) (3) Lower GI bleeding (4) Hypertensive emergency Prognosis Assessment plan Patient had likely localized anorectal bleeding from hemorrhoids due to Eliquis for a DVT Differential diagnosis would include diverticular or bleeding from ischemic colitis This time the patient is refusing any further GI workup in fact she is refusing all cardiac workup to Discharge planning is in progress Patient can follow up in my office as an outpatient if she has ongoing symptoms Plan discussed with: Other (Dr Hardy) IVORY SALAZAR MD Mar 06, 2025 14:45
--- NOTE | 2025-03-09 14:51 | ECG ---
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
--- NOTE | 2025-03-09 14:51 | ECG ---
[facility] Test Date: 2025-03-02 Test Time: 22:33:47 Pat Name: EFREN ESTRADA Department: ED Room: 0290T A Gender: F Jelly Maker: ALMAS : 1940 Requested By: GANESH MAO Order Number: [id number] Reading MD: Arnav Suárez Measurements Intervals [place] Rate: 116 P: 0 IL: 0 QRS: 23 QRSD: 101 T: 114 QT: 370 QTc: 515 Interpretive Statements Junctional tachycardia LVH with secondary repolarization abnormality Anterior Q waves, possibly due to LVH ST depr, consider ischemia, inferior leads High lateral ST elevations consider acute DE Prolonged QT interval Baseline wander in lead(s) V5 Electronically Signed On 03-12-2025 17:13:54 PDT by Arnav Suárez Please click the below link to view image of tracing.
== END 2025-03-06 13:45 | disposition home or self-care (01) | DRG 377 ==
LOC: EDBD 09:23 → ER 09:23 → OVERFLOW 18:56 → WEST WING 23:57 → TELE-WESTW 03-03 12:22
PROVIDERS: ADMIT Internal Medicine; ATTEND Internal Medicine
DX: K92.2 Gastrointestinal hemorrhage, unspecified (principal); I21.4 Non-ST elevation (NSTEMI) myocardial infarction; I50.33 Acute on chronic diastolic (congestive) heart failure; I16.1 Hypertensive emergency; I48.92 Unspecified atrial flutter; I42.1 Obstructive hypertrophic cardiomyopathy; I13.0 Hypertensive heart and chronic kidney disease with heart failure and stage 1 through stage 4 chronic kidney disease, or unspecified chronic kidney disease; Z66 Do not resuscitate; I48.0 Paroxysmal atrial fibrillation; I27.20 Pulmonary hypertension, unspecified; E03.9 Hypothyroidism, unspecified; I25.10 Atherosclerotic heart disease of native coronary artery without angina pectoris; E66.9 Obesity, unspecified; E78.5 Hyperlipidemia, unspecified; N18.9 Chronic kidney disease, unspecified; K21.9 Gastro-esophageal reflux disease without esophagitis; Z79.899 Other long term (current) drug therapy; Z86.718 Personal history of other venous thrombosis and embolism; Z82.0 Family history of epilepsy and other diseases of the nervous system; Z79.01 Long term (current) use of anticoagulants; Z83.3 Family history of diabetes mellitus; Z82.49 Family history of ischemic heart disease and other diseases of the circulatory system; Z68.33 Body mass index [BMI] 33.0-33.9, adult
CPT/HCPCS: 36415; 71045; 80053; 81001; 82270; 83735; 83880; 84443; 84484; 85014; 85018; 85025; 85610; 85730; 86850; 86900; 86901; 93005; 93306; 93970; 96365; 96375; G0378; J2470; J3490